=== PATIENT | male | born 1965 | race Caucasian/White ===

== ENCOUNTER → 2020-04-19 14:10 | Outpatient (BNVA) | payer MEDICARE, MEDICAID, SELFPAY | PROVIDERS: PCP Internal Medicine; Visit Provider Anesthesiology | DX: C64.2 Malignant neoplasm of left kidney, except renal pelvis (principal); R10.84 Generalized abdominal pain; G89.4 Chronic pain syndrome; Z90.5 Acquired absence of kidney; Z79.891 Long term (current) use of opiate analgesic | CPT/HCPCS: 99213 ==

== ENCOUNTER 2020-05-08 05:06 | Outpatient (REF) | payer MEDICARE, MEDICAID, SELFPAY ==
--- NOTE | 2020-05-08 07:43 | FL_ITS ---
EXAMINATION: XR FLUOROSCOPY WITH IMAGES CLINICAL INFORMATION: Chronic pain syndrome COMPARISON: None TECHNIQUE: Fluoroscopy performed by Dr. Fish. Fluoroscopy time: 0.2 minutes DAP: 1.39 Gycm2 Images: 2 FINDINGS: 2 intraoperative fluoroscopic images of the lumbar spine were obtained. These demonstrate positioning of a needle projecting over the central canal at the level of L3. FL/FL guidance in treatment room IMPRESSION: Intraprocedural fluoroscopy provided for injections as described above.
== END 2020-05-08 05:07 | disposition home or self-care (01) ==
LOC: HO.RADIR 05:06
PROVIDERS: Visit Provider Anesthesiology
DX: G89.4 Chronic pain syndrome (principal); C64.2 Malignant neoplasm of left kidney, except renal pelvis; Z90.5 Acquired absence of kidney; R10.84 Generalized abdominal pain
CPT/HCPCS: 62323; J1170; Q9967

== ENCOUNTER → 2020-05-21 09:43 | Outpatient (BNVA) | payer MEDICARE, MEDICAID, SELFPAY | PROVIDERS: PCP Internal Medicine; Visit Provider Anesthesiology | DX: G89.4 Chronic pain syndrome (principal); R10.84 Generalized abdominal pain; Z85.528 Personal history of other malignant neoplasm of kidney; Z79.899 Other long term (current) drug therapy; Z90.5 Acquired absence of kidney | CPT/HCPCS: 99212 ==

== ENCOUNTER 2020-06-12 05:40 | Outpatient (REF) | payer MEDICARE, MEDICAID, SELFPAY ==
--- NOTE | 2020-06-12 08:47 | FL_ITS ---
EXAMINATION: XR FLUOROSCOPY WITH IMAGES CLINICAL INFORMATION: G89.4 - Chronic pain syndrome COMPARISON: Fluoroscopy spot films lumbar spine 04/07/2020 TECHNIQUE: Fluoroscopy performed by Yolanda Fish NP. Fluoroscopy time: 0.1 minutes DAP: 0.76 Gycm2 Images: 1 FINDINGS: There is a spinal needle directed to the interlaminar region mid lumbar spine on this single lateral view. FL/FL guidance in treatment room IMPRESSION: Fluoroscopy for pain management procedure.
== END 2020-06-12 05:41 | disposition home or self-care (01) ==
LOC: HO.RADIR 05:40
PROVIDERS: Visit Provider Anesthesiology
DX: G89.4 Chronic pain syndrome (principal); C64.2 Malignant neoplasm of left kidney, except renal pelvis; R10.84 Generalized abdominal pain; Z90.5 Acquired absence of kidney
CPT/HCPCS: 62323; J1200; J2270; J2765

== ENCOUNTER → 2020-06-25 10:14 | Outpatient (BNVA) | payer MEDICARE, MEDICAID, SELFPAY | PROVIDERS: PCP Internal Medicine; Visit Provider Anesthesiology | DX: G89.4 Chronic pain syndrome (principal); R10.84 Generalized abdominal pain; C64.2 Malignant neoplasm of left kidney, except renal pelvis; Z90.5 Acquired absence of kidney | CPT/HCPCS: 99212 ==

== ENCOUNTER → 2020-07-23 13:14 | Outpatient (BNVA) | payer MEDICARE, MEDICAID, SELFPAY | PROVIDERS: PCP Internal Medicine; Visit Provider Anesthesiology | DX: C64.2 Malignant neoplasm of left kidney, except renal pelvis (principal); R10.84 Generalized abdominal pain; G89.4 Chronic pain syndrome; Z90.5 Acquired absence of kidney; Z79.899 Other long term (current) drug therapy | CPT/HCPCS: 99212 ==

== ENCOUNTER → 2020-08-22 14:15 | Outpatient (BNVA) | payer MEDICARE, MEDICAID, SELFPAY | PROVIDERS: PCP Internal Medicine; Visit Provider Anesthesiology | DX: C64.2 Malignant neoplasm of left kidney, except renal pelvis (principal); G89.4 Chronic pain syndrome; R10.84 Generalized abdominal pain; Z90.5 Acquired absence of kidney | CPT/HCPCS: 99212 ==

== ENCOUNTER 2020-09-11 06:08 | Outpatient (REF) | payer MEDICARE, MEDICAID, SELFPAY ==
--- NOTE | ~2020-09-11 | FL_ITS ---
EXAMINATION: XR FLUOROSCOPY WITH IMAGES CLINICAL INFORMATION: G89.4 - Chronic pain syndrome COMPARISON: Fluoroscopy with images 06/12/2020 TECHNIQUE: Fluoroscopy performed by Yolanda Fish NP. Fluoroscopy time: 0.2 minutes DAP: 1.57 Gycm2 Images: 1 FINDINGS: There is spinal needle overlying the mid lumbar interlaminar space. FL/FL guidance in treatment room IMPRESSION: Fluoroscopy for pain management procedure.
== END 2020-09-11 06:09 | disposition home or self-care (01) ==
LOC: HO.RADIR 06:08
PROVIDERS: Visit Provider Anesthesiology
DX: C64.2 Malignant neoplasm of left kidney, except renal pelvis (principal); R10.84 Generalized abdominal pain; G89.4 Chronic pain syndrome; Z90.5 Acquired absence of kidney
CPT/HCPCS: 62323; J3010; Q9967

== ENCOUNTER → 2020-09-19 14:29 | Outpatient (BNVA) | payer MEDICARE, MEDICAID, SELFPAY | PROVIDERS: PCP Internal Medicine; Visit Provider Anesthesiology | DX: G89.4 Chronic pain syndrome (principal); C64.2 Malignant neoplasm of left kidney, except renal pelvis; R10.84 Generalized abdominal pain; Z90.5 Acquired absence of kidney | CPT/HCPCS: 99212 ==

== ENCOUNTER → 2020-10-16 13:29 | Outpatient (BNVA) | payer MEDICARE, MEDICAID, SELFPAY | PROVIDERS: PCP Internal Medicine; Visit Provider Family Medicine Adult Medicine | DX: Z51.81 Encounter for therapeutic drug level monitoring (principal) | CPT/HCPCS: 99211 ==

== ENCOUNTER → 2020-11-14 10:48 | Outpatient (BNVA) | payer MEDICARE, MEDICAID, SELFPAY | PROVIDERS: PCP Internal Medicine; Visit Provider Anesthesiology | DX: C64.2 Malignant neoplasm of left kidney, except renal pelvis (principal); R10.84 Generalized abdominal pain; G89.4 Chronic pain syndrome; Z90.5 Acquired absence of kidney | CPT/HCPCS: 99212 ==

== ENCOUNTER 2021-01-25 08:52 | Day surgery (SDC) | payer MEDICARE, MEDICAID, SELFPAY ==
[2021-01-18 10:04] VITALS: BMI 21.7
--- NOTE | 2021-01-24 09:07 | P.CONAN_ITS ---
Documented by User: Sonya Lynn 01/24/21 09:07 HPI - Anesthesia Eval Consult details Narrative: 55yo M for Intrathecal Drug Delivery Implant PMFSH Active Problems Active Problems: All Active Problems (Updated 01/18/21 @ 10:09 by Saima Boyd) Chronic pain syndrome (Acute) Generalized abdominal pain (Acute) Acquired absence of kidney (Acute) Cancer of left kidney (Acute) Past Medical History Medical History Acquired absence of kidney Cancer of kidney Chronic pain syndrome COVID-19 vaccine series completed Generalized abdominal pain Mild heartburn Surgical History Surgical History History of abdominal surgery History of orchiectomy History of right nephrectomy Hx of colonoscopy Social History Social History Are you a primary respite care provider to a significant other at home: No Do you presently have visiting nurse or other home services: No (Sister is a nurse) Patient Tobacco Use Status: Current everyday Tobacco user Tobacco use type: Cigarette Cigarette Packs Per Day: 0.5 Cigarettes Per Day: 10.0 Years Smoked: 35 Smoked in Last 30 Days: Yes Patient Interested in Nicotine Replacement: No Patient Given Instructions on How to Stop Smoking: Yes Date Education Initiated: 01/18/21 Second Hand Smoke Exposure: No Use of substances other than those prescribed or required for medical reasons: Yes Substance Use Frequency: Occasionally Have you been hit, kicked, punched, or otherwise hurt by someone within the past year? If so, by whom?: No Are you DNR?: No Advance Directives: No Advance Directives Information Provided: No Advance Directives on File: No Recently lost weight without trying: No Eating poorly because of decreased appetite: No Nutrition Risks: No Nutritional Risk Meds Allergies Allergy/AdvReac Type Severity Reaction Status Date / Time No Known Allergies Allergy Verified 01/18/21 10:01 Home Medications Medication Instructions Recorded Confirmed Last Taken Type trazodone 50 mg tablet 50 mg PO BEDTIME 05/21/20 01/18/21 Unknown History acetaminophen 500 mg capsule 1,000 mg PO Q6H PRN 01/18/21 01/18/21 01/25/21 05:00 History gabapentin 300 mg capsule 300 mg PO TID 01/18/21 01/18/21 Unknown History acetaminophen 325 mg capsule mg 01/25/21 01/25/21 05:00 History (Tylenol) Exam Exam Date and Time: January 24, [id number] Height,Weight and Vital Signs: Height 6 ft 1 in Weight 74.843 kg Assessment and Plan Assessment Anesthesia Assessment: Chart Reviewed Documented by User: Gloria Levy 01/25/21 10:37 [facility] Past Medical History Medical History Acquired absence of kidney Cancer of kidney Chronic pain syndrome COVID-19 vaccine series completed Generalized abdominal pain Mild heartburn Family History Family history of problems with anesthesia: No Surgical History Surgical History History of abdominal surgery History of orchiectomy History of right nephrectomy Hx of colonoscopy History of Problems with Anesthesia: No Social History Social History Are you a primary respite care provider to a significant other at home: No Do you presently have visiting nurse or other home services: No (Sister is a nurse) Patient Tobacco Use Status: Current everyday Tobacco user Tobacco use type: Cigarette Cigarette Packs Per Day: 0.5 Cigarettes Per Day: 10.0 Years Smoked: 35 Smoked in Last 30 Days: Yes Patient Interested in Nicotine Replacement: No Patient Given Instructions on How to Stop Smoking: Yes Date Education Initiated: 01/18/21 Second Hand Smoke Exposure: No Use of substances other than those prescribed or required for medical reasons: Yes Substance Use Frequency: Occasionally Have you been hit, kicked, punched, or otherwise hurt by someone within the past year? If so, by whom?: No Are you DNR?: No Advance Directives: No Advance Directives Information Provided: No Advance Directives on File: No Recently lost weight without trying: No Eating poorly because of decreased appetite: No Nutrition Risks: No Nutritional Risk Meds Allergies Allergy/AdvReac Type Severity Reaction Status Date / Time No Known Allergies Allergy Verified 01/18/21 10:01 Home Medications Medication Instructions Recorded Confirmed Last Taken Type trazodone 50 mg tablet 50 mg PO BEDTIME 05/21/20 01/18/21 Unknown History acetaminophen 500 mg capsule 1,000 mg PO Q6H PRN 01/18/21 01/18/21 01/25/21 05:00 History gabapentin 300 mg capsule 300 mg PO TID 01/18/21 01/18/21 Unknown History acetaminophen 325 mg capsule mg 01/25/21 01/25/21 05:00 History (Tylenol) Exam Airway Mallampati Class: II TM Dist: >3cm Neck ROM: Full Assessment and Plan Assessment Anesthesia Assessment: Anesthesia Plan Discussed Final Anesthetic Review Family History of Problems with Anesthesia: No History of Problems with Anesthesia: No NPO: Yes ASA Class: II Final Preanesthetic Review: No Changes in Pt Med Stat, Meds/Allgs Chart Reviewed and Consent Obtained/Reviewed Patient Risk: Low Procedure Risk: Low Assessment/Block/Sedation in SS: Assess/Block/Sedation-SS Anesthetic Plan Anesthetic Plan: MAC: Disposition: Standard PACU
[2021-01-25] VITALS (7 sets, daily range): BP systolic 121–160; BP diastolic 59–95; PULSE 71–86; RESP 16–20; TEMP 36.1–36.6; O2SAT 96–100
--- NOTE | ~2021-01-25 | FL_ITS ---
EXAMINATION: XR FLUOROSCOPY WITH IMAGES CLINICAL INFORMATION: Intrathecal drug delivery implant COMPARISON: None. TECHNIQUE: Fluoroscopy performed by Dr. Carlitos Yuen. Fluoroscopy time: 0.5 minutes DAP: 4.89 Gycm2 Images: 2 FINDINGS: There is a metallic marker overlying mid T12 vertebral body on one image and a metallic marker overlying the upper left SI joint on the other image. There is a wire and catheter overlying the spine. FL/FL guidance in OR IMPRESSION: Fluoroscopy for pain management procedure.
[2021-01-25] MEDS: Lactated Ringers 1,000 ML 100 ML IVCONT (09:42)
--- NOTE | 2021-01-25 10:36 | MHC.SHP ---
Pre-Procedural Eval Section A Date of Service: 01/25/21 The patient is an INPATIENT: No The History & Physical has been completed within 30 days and I have reviewed it.: No Section B Chief Complaint: Cancer of Left Kidney Details of Present Illness: as above Relevant Family History (Specify if Yes): No Relevant Social History: None Present Medications: see Short Stay Collaborative assessment Medical History: Significant History History of Previous Operations: Relevant previous surgery/procedure and date(s) Allergies: Allergies Allergy/AdvReac Type Severity Reaction Status Date / Time No Known Allergies Allergy Verified 01/18/21 10:01 Review of Systems Sugical H&P ROS: Negative: Constitution, Cardiovascular, Respiratory, Neurological, Psychiatric, Hem-Onc, Allergic/Immunologic, Gastrointestinal, Genitourinary, Musculoskeletal, Integumentary, Endocrine and Eyes/Ears/Nose/Throat Exam Surgical H&P Exam: Normal: HEENT, Normal: Heart, Normal: Lungs, Normal: Extremities, Normal: Abdomen, Normal: Skin and Normal: Neurological Plan Diagnosis/Plan: Unchanged I have reviewed the history and physical and performed a pertinent physical examination on my patient. No changes have occurred unless specified.
--- NOTE | 2021-01-25 10:49 | W.PM.OPN ---
Operative Note Operative Note Date of Service: 01/25/21 Narrative: Intrathecal drug delivery system (pain pump) implantation. After obtaining informed consent and explaining to the patient risks, benefits and alternatives to treat his pain, the patient was brought up to the operating room where he was positioned supine on the stretcher.? [place] [employer] monitors were applied and general anesthesia was induced with endotracheal intubation.? After that the patient was transferred to the operating table prone.? All pressure points protected.? The patient received antibiotic cephazolin 3 gramms intravenously. Time-out was performed delineating correct site and side of the procedure, name and date of of the patient, risk of fire, need for antibiotic prophylaxis risk of DVT and need for DVT prophylaxis. ? After that the patient entire back was prepped with chloroprep and draped with fool body drape including ioban film. Sterilely drape C-arm was brought over the OR field and square pictures of the L1, L2, L3 vertebrae were demonstrated on the screen. the entrance point? for the catheter was chosen as the L1- L2 interspace. . In the strict midline fashion 6 cm vertical skin incision was made with #15 scalpel.?Thorough hemostatsis was obtained and the wound was widened and deepened using dull and electrocautery dissection. Plevertebral fascia was freed from overlaying tissues. After that 100 mm introducer spinal 16 g needle was incerted under x-ray guidance in the projection of the right L3 pedicle. The needle advanced under the x-ray guidance with intemitteny A-P? and lateral pictures toward the spinal canal L1-L2 interspace. When on the lateral view the needle entered the spinal canal the stylet was removed and the clear flow of the CSF was obtain through the needle hub. Intrathecal Ascenda catheter was inserted through the needle and advanced under the x-ray guidance toward the?T7- T8 vertebral body projection. posterior intrathecal catheter position was noted on the lateral view. The purse string suture was applied around the introducer needle and was tide. The needle was removed and care was taken to keep the ascenda catheter in place in between T7 and T8 vertebral projections.The stylet was removed from the catheter and the flow of CSF fluid straw colored and clear was observed coming from the catheter. Thorough hemostasis was obtained using electrocautery. the prevertebral fascia was freed from overlaying tissues. After that the needle was withdrawn with care taken to keep the catheter in place.? Anchoring device was dislodged on the catheter and advanced until it met prevertebral fascia.? It was engaged on the body of the catheter.? Two anchoring Tycron 1.o sutures were used to suture left wing of the anchor to prevertebral fascia and 1 anchoring suture was used to stitch in the right wing of anchoring device to prevertebral fascia. ?After that the thorough irrigation of the wound was performed and wound was packed with vancomycin soaked 4 x 4. Attention then was concentrated on the patient's left buttock.? Sterilely draped C-arm was brought over the operative field again and position of the patient's iliac crest on the left was demonstrated on the screen.? 2 cm below the projection of the iliac crest to the skin of the local anesthetic bupivacaine was injected in the linear horizontal fashion.? After that 8.5 cm incision was performed in patient's right buttock alongside the injected line.? Thorough hemostasis was obtained using cautery device.? After that the wound was widened and made 2.5 cm deep .? The wound was extended medially and laterally as well as caudally and cranially to form the space to accommodate the body of the pump.? Thorough hemostasis was performed.? The wound was irrigated with vancomycin containing normal saline and then tunneling device was used to connect both wounds and dislodged the intrathecal catheter into the side wound.? The catheter was trimmed appropriately after that and sutureless connection device was connected with the catheter.? After that sutureless connection device was connected to the pump.? The pump was filled with fentanyl 75 mcg per ml 19 mls. Aspiration of the side port of the pump revealed clear flow of CSF.? Three anchoring 1.0 Tycron sutures were applied in most superior lateral and superior medial as well inferior lateral corners of the wound. ? After that the sutures were connected to the bracket is on the body of the pump, intrathecal catheter was gathered behind the body of the pump and pump was dislodged into the wound.? After that the anchoring sutures were tied.? Thorough irrigation with vancomycin was performed again in both wounds.? Thorough hemostasis was verified.? 0 polisorb sutures were used to close both wounds, 2-0 suture of the same nature were used to approximate the skin.? Donita were applied to the skin line and Bacitracin ointment was applied to the staple lines.? Sterile dressing with sterile 4x4s was performed, abdominal binder was applied.? Upon completion of the procedure patient was awaken extubated and taken outside of the operating room to recovery room where HE recovered uneventfully.? HE went home without immediate complications. He was prescribed antibiotics to take for 14 days postoperatively. He was instructed to obtain probiotics OTC and take them in between the antibiotics doses. The pump was programmed to deliver 5 mcg of fentanyl in 24 hours and 3 on demand doses of fentanyl 7 mcg every 6 hours 3 times a day.
[2021-01-25] MEDS: oxyCODONE HCl Immed Release 5 MG TABLET PO (13:10)
[2021-01-25] MEDS: Acetaminophen 325 MG TABLET 650 MG PO (13:10)
--- NOTE | 2021-01-25 13:16 | P.BOP_ITS ---
Brief Operative Note Date of Service: 01/25/21 Pre-op diagnosis: Kidney cancer, intractable abdominal pain. Procedure: Implantation of intrathecal drug delivery system pain pump I [employer] Implants: Intrathecal catheter Ascenda and intrathecal pain pump SynchroMed 2 Surgeon: Carlitos Yuen MD Anesthesia: GETA Was an Insurance Administrative Assistant used for this Procedure?: No Estimated blood loss (mL): 31 Pathology: none sent Condition: stable Disposition: PACU
== END 2021-01-25 14:34 | disposition home or self-care (01) ==
PROVIDERS: PCP Internal Medicine; Visit Provider Anesthesiology
PROC: (CPT 62350; principal; 2021-01-25 10:40)
DX: C64.2 Malignant neoplasm of left kidney, except renal pelvis (principal); Z90.5 Acquired absence of kidney; G89.4 Chronic pain syndrome; R10.84 Generalized abdominal pain; Z90.79 Acquired absence of other genital organ(s); Z79.899 Other long term (current) drug therapy
CPT/HCPCS: 62350; 62362; C1755; C1772; J0690; J1100; J2250; J2370; J2405; J3010; J3370

== ENCOUNTER → 2021-01-30 13:20 | Outpatient (BNVA) | payer MEDICARE, MEDICAID, SELFPAY | PROVIDERS: PCP Internal Medicine; Visit Provider Anesthesiology | DX: R10.84 Generalized abdominal pain (principal); G89.4 Chronic pain syndrome; G97.1 Other reaction to spinal and lumbar puncture; C64.2 Malignant neoplasm of left kidney, except renal pelvis; Z90.5 Acquired absence of kidney | CPT/HCPCS: 99212 ==

== ENCOUNTER 2021-01-30 14:25 | Observation (INO) | payer MEDICARE, MEDICAID, SELFPAY ==
[2021-01-30] VITALS (7 sets, daily range): BP systolic 103–119; BP diastolic 59–73; PULSE 52–59; RESP 12–19; TEMP 36.4–37.1; O2SAT 95–100; BMI 24.5
--- NOTE | ~2021-01-30 | FL_ITS ---
EXAMINATION: XR FLUOROSCOPY WITH IMAGES CLINICAL INFORMATION: Blood patch COMPARISON: None. TECHNIQUE: Fluoroscopy performed by Dr. Charanjit Conn. Fluoroscopy time: 0.3 minutes DAP: 1.702 mGycm2 Images: 2 FINDINGS: Fluoroscopy was provided during a spinal injection. FL/FL guidance in OR IMPRESSION: Fluoroscopy performed by the orthopedic department. Please see operative report for further information.
--- NOTE | ~2021-01-30 | CT_ITS ---
EXAMINATION: CT HEAD WITHOUT CONTRAST CLINICAL INFORMATION: Headache. COMPARISON: No relevant prior imaging. TECHNIQUE: Contiguous axial imaging was performed from the skull base to vertex without intravenous administration of contrast. This CT examination was performed using dose optimization techniques as appropriate, variously including the following: *Automated exposure control *Adjustment of mA and/or kV according to patient size (this includes techniques or standardized protocols for targeted exams where dose is matched to indication/reason for exam; i.e. extremities or head) *Use of iterative reconstruction technique DLP: 816 mGy-cm FINDINGS: There is no acute intracranial hemorrhage or abnormal extra-axial collection. No intracranial mass effect or midline shift. Lateral and third ventricles are normal. No hydrocephalus. Mittal-white matter differentiation is preserved and there is no evidence of acute territorial infarct. The calvarium and skull base are intact. Mastoid air cells and middle ear cavities are well aerated. No active paranasal sinus disease. CT/CT head/brain wo con IMPRESSION: Unremarkable CT scan of the head. No evidence of acute territorial infarct or hemorrhage.
--- NOTE | ~2021-01-30 | FL_ITS ---
EXAMINATION: Intraoperative fluoroscopy CLINICAL INFORMATION: Blood patch COMPARISON: None. TECHNIQUE: Intraoperative fluoroscopy was provided for use by Dr. Yuen. A total of 2 images were saved to PACS. A radiologist was not present during imaging. Today's dictation is only for administrative purposes to document intraoperative fluoroscopic usage. TOTAL FLUOROSCOPIC TIME: 0.2 minutes FL/FL guidance in OR FINDINGS~\^^ Intraoperative fluoroscopy provided for use by Dr. Yuen. Please see operative note for detailed findings.
--- NOTE | 2021-01-30 15:29 | ED_ITS ---
HPI - General Adult General Chief complaint: General Medical Stated complaint: GENERAL WEAKNESS S/P SURGERY FROM MD OFFICE Time Seen by Provider: 01/30/21 15:19 Source: patient History of Present Illness HPI narrative: This is a 54-year-old male with a history of renal cell carcinoma as well as abdominal hernia repair status post complication with mission here to bowel and small bowel obstruction, who has had chronic abdominal pain. The patient has previously been on p.o. pain medicine but was found to have urinary retention on some opioids, did tolerate fentanyl. Last Thursday, 5 days ago, the patient had an intrathecal pain pump placed in order that the patient receive fentanyl intrathecally. His abdominal pain has been much better since then but the day following the procedure, he developed a headache, worse with being upright, as well as nausea and vomiting, poor appetite. The patient has not had any fever. Patient was evaluated by Dr. Bryan, the pain specialist who had placed the pump, today, and was thought to have post fecal puncture associated headache and nausea, was sent in for admission, and is to have a blood patch placed tomorrow.. Patient reports the pain is severe his head. He denies any fever, has had mild neck pain but denies any neck stiffness. The pain specialist had taken the dressing off of the patient's back operative site today and not found any concerning findings or sign of infection. The patient was supposed to have been placed on antibiotics after the procedure but apparently never received the prescription and has not been on them Related Data Home Medications Medication Instructions Recorded Confirmed acetaminophen 500 mg capsule 1,000 mg PO Q6H PRN 01/18/21 01/30/21 oxycodone 10 mg tablet 1 tab PO Q8H PRN 01/30/21 01/30/21 Previous Rx's Medication Instructions Recorded cephalexin 500 mg tablet 1,000 mg PO Q8H 14 Days #84 tab 01/25/21 ondansetron HCl 4 mg tablet 4 mg PO Q8H PRN 20 Days #60 tab 01/28/21 (Zofran) Allergies Allergy/AdvReac Type Severity Reaction Status Date / Time No Known Allergies Allergy Verified 01/18/21 10:01 Review of Systems Review of Systems: Yes all other systems are reviewed and are negative Constitutional: Constitutional: Reports as per HPI, Denies fever(s) and Reports headache(s) Eyes: Eyes: Reports as per HPI and Reports no additional eye complaints ENT: Reports system reviewed and no additional complaints, except as documented, Reports as per HPI, Reports headache(s), Denies nasal congestion, Denies nasal discharge and Denies sore throat Cardiovascular: Cardiovascular: Reports as per HPI, Denies chest pain and Denies dyspnea Respiratory: Respiratory: Reports as per HPI, Denies cough and Denies dyspnea Gastrointestinal: Gastrointestinal: Reports as per HPI, Denies abdominal pain, Denies diarrhea, Reports nausea and Reports vomiting Genitourinary: Genitourinary: Reports as per HPI, Denies hematuria, Denies dysuria and Denies urinary frequency Musculoskeletal: Musculoskeletal: Reports no additional musculoskeletal compl aints and Denies numbness Integumentary/Breasts: Skin/Breast: Reports as per HPI and Denies rash Neurologic: Reports headache(s), Denies numbness and Denies Sensory deficit (Neuro) Psychiatric: Psychiatric: Reports no additional psychiatric complaints and Reports as per HPI Endocrine: Endocrine: Reports no additional endocrine complaints and Reports as per HPI Hematologic/Lymphatic: Hematologic/Lymphatic: Reports no additional hematologic/lymphatic complaints, Reports as per HPI and Reports other (No peripheral edema) [facility] Past Medical History Medical History (Updated 01/30/21 @ 21:24 by Víctor Perkins MD) Acquired absence of kidney Cancer of kidney Chronic pain syndrome COVID-19 vaccine series completed Generalized abdominal pain Mild heartburn Post-dural puncture headache Surgical History History of abdominal surgery History of orchiectomy History of right nephrectomy Hx of colonoscopy Social History Social History Are you a primary child care worker to a significant other at home: No Do you presently have visiting nurse or other home services: No (Sister is a nurse) Alcohol intake: current Alcohol intake frequency: holidays/special occasions only Patient Tobacco Use Status: Current everyday Tobacco user Tobacco use type: Cigarette Cigarette Packs Per Day: 0.5 Cigarettes Per Day: 10.0 Years Smoked: 35 Second Hand Smoke Exposure: No Use of substances other than those prescribed or required for medical reasons: Yes Substance Use Type: Marijuana Substance Use Frequency: Occasionally Advance Directives: Yes Advance Directives Information Provided: No Advance Directives on File: No Physical Exam Vital Signs: Vital Signs: Last Vital Signs Temp 97.6 F 01/30/21 19:55 Pulse 52 01/30/21 19:55 Resp 17 01/30/21 19:55 BP 119/73 01/30/21 19:55 Pulse Ox 98 01/30/21 19:55 Body Mass Index 24.5 Const: General: cooperative, no acute distress and alert Orientation/consciousness: patient oriented x3 HENMT: Head: Yes normal to inspection Eyes: General: appearance normal, both eyes and all related structures Eyelids: Yes eyelids normal Conjunctivae: conjunctivae normal Pupils: Equa l, round and reactive pupils present Neck: Neck: Yes normal visual inspection and Yes supple Chest: Chest palpation & inspection: normal inspection of the chest Resp: Effort & Inspection: normal respiratory effort Auscultation: clear to auscultation bilaterally Cardio: Rate: regular rate Rhythm: regular rhythm Heart sounds: S1 normal heart sound present, S2 normal heart sound present, no gallops, no murmurs and no rubs GI: Palpation (GI): Soft to palpation, nontender and Other GI palpation findings present (Non-distended) Auscultation: normal bowel sounds Back/Spine/Pelvis: Other: two fresh bandages with Tegaderm type covering in place, no localized erythema or swelling. Skin: General skin exam: no rashes or lesions noted Neuro: General: patient oriented x3, no focal motor deficits and CN's II-XI intact bilaterally Cranial nerves: Yes Equal, round and reactive pupils present Cognition (Neuro): normal cognition Motor exam (neuro): 5/5 motor strength present throughout Sensory Exam: No Sensory deficit (Neuro) Extrem: General: Yes normal to inspection and Yes no pedal edema Psych: Appearance: grossly normal Affect: normal affect Medical Decision Making [facility] Narrative Medical decision making narrative: Patient with placement of an intrathecal fentanyl pump 5 days ago, subsequently developed headache and vomiting. Abdominal pain, which is chronic, is improved with the intrathecal pump. Patient was sent in for admission for IV fluids, pain management, and placement of a blood patch tomorrow. Labs notable for mildly elevated BUN to creatinine ratio mildly elevated white blood cell count. Patient not ill appearing, no meningismus, no suspicion for meningitis. Case discussed with Dr. Youngblood of the hospitalist service who has accepted the patient for admission Lab Data Lab results reviewed: Yes I reviewed the patient's lab results. Result diagrams: 01/30/21 15:50 01/30/21 15:50 Labs: Lab Results 01/30/21 01/30/21 01/30/21 Range/Units 15:50 15:50 18:11 WBC 12.2 H (4.8-10.8) X10*3/uL RBC 4.56 L (4.60-5.80) X10*6/uL Hgb 14.3 (14.0-18.0) g/dl Hct 41.8 L (42-52) % MCV 91.7 (80-98) fL MCH 31.4 (27.0-33.0) pg MCHC 34.2 (31.0-36.0) g/dl RDW 12.9 (11.0-16.0) % Plt Count 356 (160-400) X10*3/uL MPV 9.2 L (9.4-12.4) fL Immature Gran % (Auto) 0.4 (0.0-0.4) % Neut % (Auto) 78.9 H (45-73) % Lymph % (Auto) 11.6 L (20-40) % Custer % (Auto) 8.2 (2-11) % Eos % (Auto) 0.6 (0-4) % Baso % (Auto) 0.3 (0-2) % Lymph # (Auto) 1.4 (1.2-4.9) X10*3/uL [place]uster # (Auto) 1.0 (0.1-1.2) X10*3/uL Eos # (Auto) 0.1 (0.0-0.4) X10*3/uL Baso # (Auto) 0.0 (0.0-0.2) X10*3/uL Abs Immat Gran (auto) 0.05 H (0.00-0.03) X10*3/uL Absolute Neuts (auto) 9.6 H (2.0-8.3) X10*3/uL Absolute Nucleated RBC 0.000 (0.0-0.012) X10*3/uL Nucleated RBC % (auto) 0.0 (0.0-0.2) /100WBC Sodium 142 (135-145) mmol/L Potassium 4.4 (3.3-5.1) mmol/L Chloride 104 (96-108) mmol/L Carbon Dioxide 24 (22-29) mmol/L Anion Gap 18 (12-20) BUN 18 H (9-16) mg/dL Creatinine 1.02 (0.5-1.4) mg/dL Estim Creat Clear Calc 90.8 Estimated GFR > 60 Random Glucose 97 (60-115) mg/dL Calcium 10.1 (8.4-10.2) mg/dL Total Bilirubin 0.5 (0.0-1.0) mg/dL AST 55 H (5-37) U/L ALT 58 H (0-40) U/L Alkaline Phosphatase 88 (39-117) U/L Total Protein 7.3 (6.5-8.0) g/dL Albumin 4.5 (3.5-5.0) g/dL COVID-19 (DREW) Negative (Negative) COVID-19 Clin Com See Note Imaging Data CT scan - head: Radiologist's impression: No acute pathology Discharge Plan Discharge Clinical Impression: Post-dural puncture headache, Chronic pain syndrome, Dehydration, Vomiting Patient Disposition: Admitted As Inpatient Prescriptions: No Action cephalexin 500 mg tablet 1,000 mg PO Q8H 14 Days Qty: 84 RF: 0 ondansetron HCl [Zofran] 4 mg tablet 4 mg PO Q8H PRN (Reason: nausea and vomiting) 20 Days Qty: 60 RF: 8 acetaminophen [Tylenol Extra Strength] 500 mg Capsule 1,000 mg PO Q6H PRN (Reason: Pain) RF: 0 oxycodone 10 mg tablet 1 tab PO Q8H PRN (Reason: pain) RF: 0
[2021-01-30 15:53] LABS: MANUAL DIFF FLAG NO
[2021-01-30] MEDS: 0.9 % Sodium Chloride 1,000 ML 999 ML IV (15:53)
[2021-01-30] MEDS: HYDROmorphone HCl 1 MG/ML SYRINGE IVPUSH (15:54)
[2021-01-30 15:55] LABS: Basophils Percent Auto 0.3 % (0-2); Eosinophils Absolute Auto 0.1 X10*3/uL (0.0-0.4); Eosinophils Percent Auto 0.6 % (0-4); Hematocrit 41.8 % (42-52); Hemoglobin 14.3 g/dl (14.0-18.0); Imm Gran Abs Auto 0.05 X10*3/uL (0.00-0.03); Imm Gran Pct Auto 0.4 % (0.0-0.4); Lymphocytes Absolute Auto 1.4 X10*3/uL (1.2-4.9); Lymphocytes Percent Auto 11.6 % (20-40); Mean Corpuscular HGB Conc 34.2 g/dl (31.0-36.0); Mean Corpuscular Hemoglobin 31.4 pg (27.0-33.0); Mean Corpuscular Volume 91.7 fL (80-98); Mean Platelet Volume 9.2 fL (9.4-12.4); Monocytes Percent Auto 8.2 % (2-11); Neutrophils Absolute Auto 9.6 X10*3/uL (2.0-8.3); Neutrophils Percent Auto 78.9 % (45-73); Platelet Count 356 X10*3/uL (160-400); Red Blood Count 4.56 X10*6/uL (4.60-5.80); Red Cell Distribution Width 12.9 % (11.0-16.0); White Blood Count 12.2 X10*3/uL (4.8-10.8)
--- NOTE | 2021-01-30 16:01 | PC.NURSE ---
iv inserted, labs drawn, pt medicated per order, vss, will continue to monitor
[2021-01-30 16:22] LABS: Alanine Aminotransferase 58 U/L (0-40); Albumin Level 4.5 g/dL (3.5-5.0); Alkaline Phosphatase 88 U/L (39-117); Anion Gap 18 (12-20); Aspartate Amino Transferase 55 U/L (5-37); Bilirubin Total 0.5 mg/dL (0.0-1.0); Blood Urea Nitrogen 18 mg/dL (9-16); Calcium 10.1 mg/dL (8.4-10.2); Carbon Dioxide 24 mmol/L (22-29); Chloride 104 mmol/L (96-108); Creatinine Clr Calc Pharmacy 90.8; Estimated Glomerular Filt Rate > 60; Glucose Random 97 mg/dL (60-115); Potassium 4.4 mmol/L (3.3-5.1); Sodium 142 mmol/L (135-145); Total Protein 7.3 g/dL (6.5-8.0)
[2021-01-30 18:33] LABS: COVID-19 Test Negative (Negative); IDNOW Serial# 9DD0AD1C
[2021-01-30] MEDS: HYDROmorphone HCl 0.5 MG/0.5 ML SYRINGE IVPUSH (18:39)
[2021-01-30] MEDS: oxyCODONE HCl Immed Release 5 MG TABLET 10 MG PO (18:40)
--- NOTE | 2021-01-30 18:43 | PC.NURSE ---
patient medicated for pain per order
--- NOTE | 2021-01-30 19:56 | PC.NURSE ---
patient a&ox3, vss, pt awaiting inpt bed, c/o 12/06 pain which has decreased pt stated, will continue to monitor.
--- NOTE | 2021-01-30 20:49 | PHA.MEDREC ---
Addendum entered by [facility] 01/30/21 20:49: PT states he has not been able to keep down the cephalexin. Original Note: Pharmacy Consult ? Medication Reconciliation Pharmacy has completed the medication reconciliation.
--- NOTE | 2021-01-30 20:53 | PC.NURSE ---
hospitalist in to see patien
--- NOTE | 2021-01-30 22:02 | PC.NURSE ---
pt currently sleeping, rr 18, waiting for inpt bed, will continue to monitor.
--- NOTE | 2021-01-30 22:17 | P.HPHOSP_ITS ---
History of Present Illness Date of Service: 01/30/21 Chief Complaint: Headache 55-year-old male with a past medical history of SBO status post multiple abdominal surgeries, history of chronic abdominal pain on opiate medications at home, recently had intrathecal pump on last Thursday; presented to the hospital with a chief complaint of headache. Postprocedure he started developed headache which has gradually worsened on Thursday and has been continuous; located on the frontal area, a denies any blurry visions, nausea vomiting. Denies any numbness tingling or focal weakness. Denies any fevers chills. Patient also complains of pain at the procedure site; Denies any GI or symptoms. Review of all other systems is negative except mentioned above ER course: Per ER physician, patient exam was nonfocal, neck is supple, no meningeal signs, patient afebrile; also mentioned that patient would probably does not need LP as there is less concern for meningitis. Also mentioned that findings consistent with spinal headache secondary to the home; discussed with Dr. yuen from pain management who placed the palm recommended admission to the hospital and will put in a blood patch in the morning [facility] Medical History (Updated 02/20/21 @ 11:47 by Carlitos Yuen MD) Acquired absence of kidney Cancer of kidney Cancer of left kidney Chronic pain syndrome COVID-19 vaccine series completed Generalized abdominal pain Gout attack History of gout Mild heartburn Post-dural puncture headache Postdural puncture headache Surgical History (Updated 02/15/21 @ 00:02 by Callum Moreno) History of abdominal surgery History of orchiectomy History of right nephrectomy Hx of colonoscopy Status post insertion of intrathecal pump Social History Are you a primary healthcare market consultant to a significant other at home: No Do you presently have visiting nurse or other home services: No (Sister is a nurse) Alcohol intake: current Alcohol intake frequency: holidays/special occasions only Patient Tobacco Use Status: Current everyday Tobacco user Tobacco use type: Cigarette Cigarette Packs Per Day: 0.5 Cigarettes Per Day: 10.0 Years Smoked: 35 Second Hand Smoke Exposure: No Substance Use Type: Marijuana service: No Current occupational status: disabled Meds Allergies Allergy/AdvReac Type Severity Reaction Status Date / Time No Known Allergies Allergy Verified 01/18/21 10:01 Active Medications: Current Medications Generic Name Dose Route Start Last Admin Trade Name Edward PRN Reason Stop Dose Admin Hydromorphone HCl 0.5 mg 01/30/21 22:10 Hydromorphone Hcl 0.5 Mg/0.5 Ml Syringe IVPUSH Q4H PRN Pain, Severe (Pain Scale 7-10) Melatonin 6 mg 01/30/21 22:10 Melatonin 3 Mg Tablet PO BEDTIME PRN Insomnia Non-Formulary Medication 1,000 mg 01/30/21 22:15 Cephalexin PO Q8H KELTON Ondansetron HCl 4 mg 01/30/21 22:10 Ondansetron Hcl 4 Mg/2 Ml Vial IVPUSH Q8H PRN Nausea and Vomiting Pharmacy Consult 1 each 01/30/21 20:22 Consult Rx Perform Med Rec MISCELLANE ONCE PRN Consult order Sodium Chloride 3 ml 01/31/21 00:00 0.9 % Sodium Chloride Flush 3 M[facility] Medications Medication Instructions Recorded Confirmed Last Taken Type acetaminophen 500 mg capsule 1,000 mg PO Q6H PRN 01/18/21 01/30/21 01/25/21 05:00 History Physical Exam Vital Signs and Narrative: Vital Signs: Last Vital Signs Temp 98.8 F 01/30/21 21:18 Pulse 52 01/30/21 21:18 Resp 18 01/30/21 22:02 BP 104/59 L 01/30/21 21:18 Pulse Ox 97 01/30/21 21:18 Body Mass Index 24.5 Gen: Appears be in no acute distress HEENT: NCAT, Moist mucosa. PERRLA Pulmonary: Vesicular breath sounds, fair air entry CVS: Normal S1-S2 Abdomen: BS+, Soft, Nontender Extremities: Warm well perfused; intrathecal pump site on the low back appears healing; has sutures in place; Neuro: Alert and awake. Nonfocal examination; Results Labs CBC and Chem 7: 01/31/21 05:45 01/31/21 05:45 Labs: Laboratory Results - last 24 hr 01/30/21 01/30/21 01/30/21 15:50 15:50 18:11 MCV 91.7 MCH 31.4 MCHC 34.2 RDW 12.9 Plt Count 356 MPV 9.2 L Immature Gran % (Auto) 0.4 Neut % (Auto) 78.9 H Lymph % (Auto) 11.6 L [place] % (Auto) 8.2 Eos % (Auto) 0.6 Baso % (Auto) 0.3 Lymph # (Auto) 1.4 [place] # (Auto) 1.0 Eos # (Auto) 0.1 Baso # (Auto) 0.0 Abs Immat Gran (auto) 0.05 H Absolute Neuts (auto) 9.6 H Absolute Nucleated RBC 0.000 Nucleated RBC % (auto) 0.0 Anion Gap 18 Estim Creat Clear Calc 90.8 Estimated GFR > 60 Random Glucose 97 Calcium 10.1 Total Bilirubin 0.5 AST 55 H ALT 58 H Alkaline Phosphatase 88 Total Protein 7.3 Albumin 4.5 COVID-19 (DREW) Negative COVID-19 Clin Com See Note Imaging Radiologist's Impressions: Impressions Head CT 01/30/21 16:41 IMPRESSION: Unremarkable CT scan of the head. No evidence of acute territorial infarct or hemorrhage. Assessment and Plan (1) Postdural puncture headache: Status: Acute 55-year-old male with a past medical history of chronic abdominal pain status post intrathecal pump placement with fentanyl on last Thursday presented to the hospital with a chief complaint of headaches; Headaches: Likely spinal pain/post procedural pain. Gentle IV fluids. Dr Yuen planning for blood patch in AM. Pain control DVT prophylaxis: SCD boots Code status: Full code Quality Stroke Does the patient have a stroke diagnosis?: No VTE Prior VTE?: No VTE Risk Level:: Medical - moderate - high VTE Device Contraindication: N/A - Device Ordered VTE Drug Contraindication: Treatment Not Indicated
[2021-01-31] VITALS (12 sets, daily range): BP systolic 99–143; BP diastolic 51–83; PULSE 50–85; RESP 14–18; TEMP 36.2–36.9; O2SAT 97–100
[2021-01-31] MEDS: HYDROmorphone HCl 0.5 MG/0.5 ML SYRINGE IVPUSH ×5 (00:29→20:41)
[2021-01-31] MEDS: 0.9 % Sodium Chloride Flush 3 ML SYRINGE IVFLUSH ×2 (00:29→08:29)
[2021-01-31 06:42] LABS: MANUAL DIFF FLAG NO
[2021-01-31 06:50] LABS: Basophils Percent Auto 0.2 % (0-2); Eosinophils Absolute Auto 0.2 X10*3/uL (0.0-0.4); Eosinophils Percent Auto 1.4 % (0-4); Hematocrit 38.5 % (42-52); Imm Gran Abs Auto 0.05 X10*3/uL (0.00-0.03); Imm Gran Pct Auto 0.4 % (0.0-0.4); Lymphocytes Absolute Auto 1.6 X10*3/uL (1.2-4.9); Mean Corpuscular HGB Conc 33.8 g/dl (31.0-36.0); Mean Corpuscular Hemoglobin 31.4 pg (27.0-33.0); Mean Platelet Volume 9.8 fL (9.4-12.4); Monocytes Absolute Auto 1.5 X10*3/uL (0.1-1.2); Monocytes Percent Auto 11.5 % (2-11); Neutrophils Absolute Auto 9.7 X10*3/uL (2.0-8.3); Neutrophils Percent Auto 74.5 % (45-73); Platelet Count 348 X10*3/uL (160-400); Red Blood Count 4.14 X10*6/uL (4.60-5.80); Red Cell Distribution Width 12.9 % (11.0-16.0)
[2021-01-31 07:20] LABS: Anion Gap 15 (12-20); Blood Urea Nitrogen 17 mg/dL (9-16); Carbon Dioxide 23 mmol/L (22-29); Chloride 105 mmol/L (96-108); Estimated Glomerular Filt Rate > 60; Glucose Random 86 mg/dL (60-115); Potassium 3.8 mmol/L (3.3-5.1); Sodium 139 mmol/L (135-145)
--- NOTE | 2021-01-31 09:14 | MHC.CM.PN ---
DERRICK 01/31/21, EMR REVIEWED, PT ADMITTED TO OBSERVATION W/POST PROCEDURAL SPINAL H/A, PER NURSGING PT IS SCHEDULED FOR BLOOD PATCH PLACEMENT AT 3PM TODAY, CM MET W/PT WHO REPORTS HE LIVES ALONE, IS INDEPENDENT W/ALL CARE, NO DME OTHER THAN IMPLANTED PAIN PUMP (02/02/30), PT DOES NOT ANTICIPATE ANY NEEDS AFTER D/C. PT VERIFIES PCP AND HCP. D/C PLAN: HOME SELF-CARE, FAMILY FOR TRANSPORT PCP: NOVA RENDON HCP: ANGIE TREJO [phone]
--- NOTE | 2021-01-31 10:45 | P.PNIM_ITS ---
Subjective Subjective Date of Service: 01/31/21 Interval History: headache Constitutional Constitutional: Reports no additional constitutional complaints Eyes Eyes: Reports no additional eye complaints Physical Exam Vital Signs: Vital Signs: Last Vital Signs Temp 97.3 F 01/31/21 07:56 Pulse 53 01/31/21 07:56 Resp 16 01/31/21 09:42 BP 111/57 L 01/31/21 07:56 Pulse Ox 99 01/31/21 07:56 Body Mass Index 24.5 General: AO X 3, in pain Resp: CTA bilateral CVS: S1,S2,RRR GI: soft, non tender, non distended Neuro: motor grossly intact Psych: appropriate affect Objective Data Current Medications Generic Name Dose Route Start Last Admin Trade Name Freq PRN Reason Stop Dose Admin Cephalexin HCl 1,000 mg 01/31/21 09:00 01/31/21 08:28 Cephalexin 500 Mg Capsule PO Not Given TID [facility] Hydromorphone HCl 0.5 mg 01/30/21 22:10 01/31/21 09:42 Hydromorphone Hcl 0.5 Mg/0.5 Ml Syringe IVPUSH 0.5 mg Q4H PRN Administration Pain, Severe (Pain Scale 7-10) Melatonin 6 mg 01/30/21 22:10 Melatonin 3 Mg Tablet PO BEDTIME PRN Insomnia Ondansetron HCl 4 mg 01/30/21 22:10 Ondansetron Hcl 4 Mg/2 Ml Vial IVPUSH Q8H PRN Nausea and Vomiting Pharmacy Consult 1 each 01/30/21 20:22 Consult Rx Perform Med Rec MISCELLANE ONCE PRN Consult order Sodium Chloride 3 ml 01/31/21 00:00 01/31/21 08:29 0.9 % Sodium Chloride Flush 3 Ml Syringe IVFLUSH 3 ml QSHIFT [facility] Administration Labs CBC & Chem 7: 01/31/21 05:45 01/31/21 05:45 Labs: Laboratory Results - last 24 hr 01/30/21 01/30/21 01/30/21 15:50 15:50 18:11 MCV 91.7 MCH 31.4 MCHC 34.2 RDW 12.9 Plt Count 356 MPV 9.2 L Immature Gran % (Auto) 0.4 Neut % (Auto) 78.9 H Lymph % (Auto) 11.6 L [place] % (Auto) 8.2 Eos % (Auto) 0.6 Baso % (Auto) 0.3 Lymph # (Auto) 1.4 [place] # (Auto) 1.0 Eos # (Auto) 0.1 Baso # (Auto) 0.0 Abs Immat Gran (auto) 0.05 H Absolute Neuts (auto) 9.6 H Absolute Nucleated RBC 0.000 Nucleated RBC % (auto) 0.0 Anion Gap 18 Estim Creat Clear Calc 90.8 Estimated GFR > 60 Random Glucose 97 Calcium 10.1 Magnesium Total Bilirubin 0.5 AST 55 H ALT 58 H Alkaline Phosphatase 88 Total Protein 7.3 Albumin 4.5 COVID-19 (DREW) Negative COVID-19 Clin Com See Note 01/31/21 01/31/21 05:45 05:45 MCV 93.0 MCH 31.4 MCHC 33.8 RDW 12.9 Plt Count 348 MPV 9.8 Immature Gran % (Auto) 0.4 Neut % (Auto) 74.5 H Lymph % (Auto) 12.0 L [place] % (Auto) 11.5 H Eos % (Auto) 1.4 Baso % (Auto) 0.2 Lymph # (Auto) 1.6 [place] # (Auto) 1.5 H Eos # (Auto) 0.2 Baso # (Auto) 0.0 Abs Immat Gran (auto) 0.05 H Absolute Neuts (auto) 9.7 H Absolute Nucleated RBC 0.000 Nucleated RBC % (auto) 0.0 Anion Gap 15 Estim Creat Clear Calc 113.0 Estimated GFR > 60 Random Glucose 86 Calcium 9.0 D Magnesium 2.0 Total Bilirubin AST ALT Alkaline Phosphatase Total Protein Albumin COVID-19 (DREW) COVID-19 Clin Com Assessment and Plan Assessment and Plan: 55M post intrathecal pump, presented with headaches headaches plan for blood patch today pain control Quality Stroke Does the patient have a stroke diagnosis?: No VTE Prior VTE?: No VTE Risk Level:: Medical - moderate - high VTE Device Contraindication: N/A - Device Ordered VTE Drug Contraindication: Treatment Not Indicated
--- NOTE | 2021-01-31 15:09 | MHC.SHP ---
Pre-Procedural Eval Section A Date of Service: 01/31/21 The patient is an INPATIENT: Yes Changes since office visit: Yes Patient answered all questions The History & Physical has been completed within 30 days and I have reviewed it.: Yes Section B Chief Complaint: Headache Allergies: Allergies Allergy/AdvReac Type Severity Reaction Status Date / Time No Known Allergies Allergy Verified 01/18/21 10:01 Plan I have reviewed the history and physical and performed a pertinent physical examination on my patient. No changes have occurred unless specified.
[2021-01-31] MEDS: oxyCODONE HCl Immed Release 5 MG TABLET 10 MG PO (17:15)
[2021-01-31] MEDS: 0.9 % Sodium Chloride 1,000 ML 75 ML IVCONT (17:15)
--- NOTE | 2021-01-31 17:16 | P.BOP_ITS ---
Brief Operative Note Date of Service: 01/31/21 Pre-op diagnosis: Post dural puncture headache Procedure: Epidural blast that Implants: None Surgeon: Carlitos Yuen MD Was an Nuclear Reactor Engineer used for this Procedure?: No Estimated blood loss (mL): 5 Pathology: none sent Condition: stable Disposition: PACU
--- NOTE | 2021-01-31 17:18 | P.OP_ITS ---
Operative Note Operative Note Date of Service: 01/31/21 Narrative: Mr. Gonzalez is very pleasant 55 years old gentleman who received intrathecal drug delivery system pain pump 1 week ago. He developed post dural puncture headache postoperatively. He came today to the operating room to rece hilario epidural blood patch. After obtaining informed consent the patient was brought to the OR and he was positioned prone on the operating table. He was not sedated. We started from preparation of the patient forearms for sterile blood withdrawal for the blood patch. It appeared to be very difficult to perform, the several veins I tried to canulate were very fragile and ruptured creating local hem atoma. the patient started to become more restless. He started to moan and complain on pain in the abdomen while positioning on the operating table with the several pillows under the belly. The main pain of this patient is secondary to procedures on kidney cancer done through the abdomen. He is suffering from chronic abdominal pain. At this moment I requested attendance of the anesthesiologist on-call. Dr. Frank came to the rescue. Dr. Frank came to the room and carefully examined the patient. Unfortunately neither on upper nor on lower extremities he like me was not able to locate any vein which is suitable for cannulation with large-bore IV catheter. At this moment he prepped yet another site of the intravenous puncture while I was ready to do the access to the epidural space. The lower back of the patient was prepped with ChloraPrep and draped with utility towels. Sterilely draped C- arm was brought of the operating field and sq picture of L1 and L2 vertebra was demonstrated on the screen. Local anesthetic was injected in the projection of upper margin of the L2 lamina 1-2 cc of lidocaine 2%. After that 22 gauge Touhy needle was inserted through the skin and advanced to upper margin of the left L2 lamina on anterior posterior and lateral views. After that loss of resistance to air technique was used to slide the Touhy needle off of the margin of the L2 lamina on the left and advanced it to epidural space. When loss of resistance was felt the Omnipaque contrast was injected demonstrating epidurogram on the lateral view. At this moment Dr. Frank obtained and access to the peripheral vein using plain 20 gauge needle without the cannulation and aspirated approximately 5 cc of the blood. That was not enough however he transferred the blood to ar and I injected this 5 cc into epidural Touhy needle. At this moment the decision was made to disconnect the patient's IV and obtain blood from IV site. It probably was the only good vein the patient had in periphery in the arms. Hip prepped with ChloraPrep the vicinity of IV site and IV tubing, he disconnected IV line from the catheter in the vein and allowed 3-4 mL of the blood to flow out of the catheter. After that he sterilely connected 10 cc syringe to the open catheter and obtained 10 cc of fresh blood out of the patient's right median vein. After that he passed the syringe to me and reconnected the IV side. At this moment I got the 10 cc of blood in the syringe connected to the Tuohy needle and injected into the patient's epidural space. The needle was removed, sterile Band-Aid was applied. The patient tolerated procedure well. He reported 30 minutes after the procedure his headache almost gone.
[2021-01-31] MEDS: Clindamycin Phosphate/D5W 600 MG/50 ML PIGGYBACK 100 MG IV (17:20)
[2021-01-31] MEDS: Lactated Ringers 1,000 ML 100 ML IVCONT (18:30)
[2021-02-01] VITALS (8 sets, daily range): BP systolic 100–147; BP diastolic 57–78; PULSE 53–62; RESP 14–18; TEMP 35.9–36.6; O2SAT 97–100
[2021-02-01] MEDS: HYDROmorphone HCl 0.5 MG/0.5 ML SYRINGE IVPUSH ×8 (00:39→23:44)
[2021-02-01] MEDS: 0.9 % Sodium Chloride Flush 3 ML SYRINGE IVFLUSH (00:41)
[2021-02-01] MEDS: Clindamycin Phosphate/D5W 600 MG/50 ML PIGGYBACK 100 MG IV ×3 (02:40→17:46)
[2021-02-01] MEDS: Lactated Ringers 1,000 ML 100 ML IVCONT ×2 (05:19→15:27)
--- NOTE | 2021-02-01 15:01 | HO.PM.IMPN ---
Subjective Subjective Date of Service: 02/01/21 Interval History: pain Review of Systems Review of Systems: Yes all other systems are reviewed and are negative Physical Exam Vital Signs: Vital Signs: Last Vital Signs Temp 97.1 F 02/01/21 11:38 Pulse 53 02/01/21 11:38 Resp 18 02/01/21 13:01 BP 100/57 L 02/01/21 11:38 Pulse Ox 100 02/01/21 11:38 Body Mass Index 24.5 General: AO X 3, in pain Resp: CTA bilateral CVS: S1,S2,RRR GI: soft, non tender, non distended Neuro: motor grossly intact Psych: appropriate affect Objective Data Current Medications Generic Name Dose Route Start Last Admin Trade Name Freq PRN Reason Stop Dose Admin Hydromorphone HCl 0.5 mg 01/30/21 22:10 02/01/21 09:21 Hydromorphone Hcl 0.5 Mg/0.5 Ml Syringe IVPUSH 0.5 mg Q4H PRN Administration Pain, Severe (Pain Scale 7-10) Lactated Ringer's 1,000 mls @ 100 mls/hr 01/31/21 17:15 02/01/21 13:23 Lr IVCONT Not Given .Q10H KELTON Clindamycin Phosphate 600 mg in 50 mls @ 100 mls/hr 02/01/21 02:00 02/01/21 10:02 Cleocin IV Infused Q8H KELTON Infusion Melatonin 6 mg 01/30/21 22:10 Melatonin 3 Mg Tablet PO BEDTIME PRN Insomnia Ondansetron HCl 4 mg 01/30/21 22:10 Ondansetron Hcl 4 Mg/2 Ml Vial IVPUSH Q8H PRN Nausea and Vomiting Pharmacy Consult 1 each 01/30/21 20:22 Consult Rx Perform Med Rec MISCELLANE ONCE PRN Consult order Sodium Chloride 3 ml 01/31/21 00:00 02/01/21 07:51 0.9 % Sodium Chloride Flush 3 Ml Syringe IVFLUSH Not Given QSHIFT [facility] Labs CBC & Chem 7: 01/31/21 05:45 01/31/21 05:45 Assessment and Plan (1) Chronic pain syndrome: Status: Acute Assessment and Plan: 55M post intrathecal pump, presented with headaches headaches s/p blood patch 01/31/21 pain control Quality Stroke Does the patient have a stroke diagnosis?: No VTE Prior VTE?: No VTE Risk Level:: Medical - moderate - high VTE Device Contraindication: N/A - Device Ordered VTE Drug Contraindication: Treatment Not Indicated
--- NOTE | 2021-02-01 16:26 | MHC.CM.PN ---
EMR REVIEWED, PT HAD BLOOD PATCH ON 01/31, NOT READY FOR D/C, ANTICIPATE D/C OVER W/E. D/C PLAN: HOME SELF-CARE, FAMILY FOR TRANSPORT.
[2021-02-02] MEDS: Lactated Ringers 1,000 ML 100 ML IVCONT ×3 (02:10→23:42)
[2021-02-02] MEDS: Clindamycin Phosphate/D5W 600 MG/50 ML PIGGYBACK 100 MG IV ×3 (02:17→17:45)
[2021-02-02 04:00] VITALS: BP 108/57; PULSE 67; RESP 18; TEMP 36.3; O2SAT 96
[2021-02-02] MEDS: HYDROmorphone HCl 0.5 MG/0.5 ML SYRINGE IVPUSH ×5 (04:23→21:32)
[2021-02-02 07:20] VITALS: BP 110/58; PULSE 62; RESP 17; TEMP 36.4; O2SAT 96
--- NOTE | 2021-02-02 09:09 | HO.PAINCONS ---
Review of Systems Constitutional: Constitutional: Reports no additional constitutional complaints, Denies body ache(s), Denies chills, Denies daytime sleepiness, Reports headache(s), Reports lethargy, Reports poor appetite and Denies weakness ENT: Reports headache(s) and Denies disequilibrium Cardiovascular: Cardiovascular: Reports no additional cardiovascular complaints and Denies dyspnea Respiratory: Respiratory: Reports no additional respiratory complaints and Denies dyspnea Gastrointestinal: Gastrointestinal: Denies abdominal pain Musculoskeletal: Musculoskeletal: Reports as per HPI, Denies abnormal gait and Denies numbness Neurologic: Denies Neuro-related abnormal movements, Denies abnormal gait, Reports headache(s), Denies numbness, Denies radicular pain, Denies seizure-like activity, Denies paresthesias, Denies disequilibrium and Denies weakness Psychiatric: Psychiatric: Reports no additional psychiatric complaints PMF Past Medical History Medical History (Updated 02/02/21 @ 09:34 by Carlitos Yuen MD) Acquired absence of kidney Cancer of kidney Chronic pain syndrome COVID-19 vaccine series completed Generalized abdominal pain Gout attack History of gout Mild heartburn Post-dural puncture headache Surgical History (Updated 02/02/21 @ 09:34 by Carlitos Yuen MD) History of abdominal surgery History of orchiectomy History of right nephrectomy Hx of colonoscopy Status post insertion of intrathecal pump Social History Social History Are you a primary social worker palliative care to a significant other at home: No Do you presently have visiting nurse or other home services: No (Sister is a nurse) Alcohol intake: current Alcohol intake frequency: holidays/special occasions only Patient Tobacco Use Status: Current everyday Tobacco user Tobacco use type: Cigarette Cigarette Packs Per Day: 0.5 Cigarettes Per Day: 10.0 Years Smoked: 35 Second Hand Smoke Exposure: No Use of substances other than those prescribed or required for medical reasons: Yes Substance Use Type: Marijuana Substance Use Frequency: Occasionally Currently Displaying Signs/Symptoms of Drug Intoxication Withdrawal: No Advance Directives: Yes Advance Directives Information Provided: No Advance Directives on File: No Do you have thoughts of harming others: None Do you have a plan to hurt others: No Plan service: No Current occupational status: disabled Physical Exam Vital Signs: Vital Signs: Last Vital Signs Temp 97.5 F 02/02/21 07:20 Pulse 62 02/02/21 07:20 Resp 17 02/02/21 07:20 BP 110/58 L 02/02/21 07:20 Pulse Ox 96 02/02/21 07:20 Body Mass Index 24.5 Const: General: cooperative, in distress and anxious Nutritional Appearance: average body habitus Orientation/consciousness: patient oriented x3 Limitations: physical limitations and other limitations (Difficulty of ambulation with all current conditions) Eyes: Pupils: Equal, round and reactive pupils present EOM: EOMs intact bilaterally Neck: Neck: Yes normal visual inspection Chest: Chest palpation & inspection: normal inspection of the chest Resp: Effort & Inspection: able to speak in complete sentences, normal respiratory pattern, no audible wheezes and no cough Auscultation: clear to auscultation bilaterally Cardio: Jugular venous distension: no JVD Rate: regular rate Rhythm: regular rhythm Heart sounds: S1 normal heart sound present and S2 normal heart sound present GI: Inspection: Yes normal to inspection and No distended Palpation (GI): Soft to palpation, nontender and no guarding Back/Spine/Pelvis: Other: The dressings were removed from the patient's back and the wounds were exposed the incision lines are very innocent looking. [place] are competent. There is no redness no swelling no pathological discharge minor tenderness on palpation in projection of the right side of the postoperative wound but there is no swelling in the area. The wound in the left upper buttock implantation site tenderness is absent on palpation there is no pathological discharge, the karin are competent no redness no swelling no tenderness of palpation. Patient reports very minimal if any abdominal pain! Neuro: General: patient oriented x3 Cranial nerves: Yes Equal, round and reactive pupils present Extrem: Other: Bilaterally feet are swollen mostly at distal points at the toes and metatarsal area. The joints are enlarged. The skin is red more on the right and less on the left foot. Assessment and Plan (1) Acquired absence of kidney: Status: Acute (2) Cancer of left kidney: Status: Acute (3) Generalized abdominal pain: Status: Acute (4) Chronic pain syndrome: Status: Acute (5) Post-dural puncture headache: Status: Acute (6) Gout attack: Status: Acute (7) History of gout: Status: Acute (8) Status post insertion of intrathecal pump: Status: Acute Assessment and Plan: 1. Continue IV hydration about 75-100 cc/hour. 2. Continue caffeinated beverages such is strong coffee, dark chocolate, Coca-Cola, Pepsi Cola, Dr. Rinaldi and such. 3. If patient's headache is severe Fioricet can be given p.r.n. 4. Continue oral oxycodone up 10 mg q.6 hours p.r.n. pain. 5. Continue IV clindamycin. If patient is discharged he needs to continue oral clindamycin until day 14 postoperatively as per pain management protocols. The prescription is sent to the pharmacy as of 01/31/2021. 6. Consider colchicine as a treatment of acute gout exacerbation. 7. Consider allopurinol as a treatment of gout. 8. Dressing change on the wound does not have to be done every day unless the dressing for all of. If that occurred I recommend Betadine prep and dry sterile 4x4s applied to the area of the wounds. Hip wounds dry. Avoid showers. Sponge bath only. Inform office if discharge is planned follow-up appointment will be scheduled.
[2021-02-02] MEDS: predniSONE 20 MG TABLET 40 MG PO (09:27)
--- NOTE | 2021-02-02 09:31 | P.PNIM_ITS ---
Subjective Subjective Date of Service: 02/02/21 Interval History: left toe pain Constitutional Constitutional: Reports no additional constitutional complaints Eyes Eyes: Reports no additional eye complaints Physical Exam Vital Signs: Vital Signs: Last Vital Signs Temp 97.5 F 02/02/21 07:20 Pulse 62 02/02/21 07:20 Resp 17 02/02/21 07:20 BP 110/58 L 02/02/21 07:20 Pulse Ox 96 02/02/21 07:20 Body Mass Index 24.5 General: AO X 3, in pain Resp: CTA bilateral CVS: S1,S2,RRR GI: soft, non tender, non distended Neuro: motor grossly intact Psych: appropriate affect left toe pascual and swelling Objective Data Current Medications Generic Name Dose Route Start Last Admin Trade Name Freq PRN Reason Stop Dose Admin Hydromorphone HCl 0.5 mg 01/30/21 22:10 02/02/21 04:23 Hydromorphone Hcl 0.5 Mg/0.5 Ml Syringe IVPUSH 0.5 mg Q4H PRN Administration Pain, Severe (Pain Scale 7-10) Lactated Ringer's 1,000 mls @ 100 mls/hr 01/31/21 17:15 02/02/21 02:10 Lr IVCONT 100 mls/hr .Q10H KELTON Administration Clindamycin Phosphate 600 mg in 50 mls @ 100 mls/hr 02/01/21 02:00 02/02/21 04:22 Cleocin IV Infused Q8H KELTON Infusion Melatonin 6 mg 01/30/21 22:10 Melatonin 3 Mg Tablet PO BEDTIME PRN Insomnia Ondansetron HCl 4 mg 01/30/21 22:10 Ondansetron Hcl 4 Mg/2 Ml Vial IVPUSH Q8H PRN Nausea and Vomiting Oxycodone HCl 10 mg 02/02/21 09:27 Oxycodone Hcl Immed Release 5 Mg Tablet PO Q4H PRN pain Pharmacy Consult 1 each 01/30/21 20:22 Consult Rx Perform Med Rec MISCELLANE ONCE PRN Consult order Prednisone 40 mg 02/02/21 09:30 Prednisone 20 Mg Tablet PO DAILY KELTON Sodium Chloride 3 ml 01/31/21 00:00 02/02/21 07:29 0.9 % Sodium Chloride Flush 3 Ml Syringe IVFLUSH Not Given QSHIFT [facility] Labs CBC & Chem 7: 08/05/21 05:45 01/31/21 05:45 Assessment and Plan (1) Status post insertion of intrathecal pump: Status: Acute Assessment and Plan: 55M post intrathecal pump, presented with headaches headaches s/p blood patch 01/31/21 pain control left toe gout prednisone Quality Stroke Does the patient have a stroke diagnosis?: No VTE Prior VTE?: No VTE Risk Level:: Medical - moderate - high VTE Device Contraindication: N/A - Device Ordered VTE Drug Contraindication: Treatment Not Indicated
[2021-02-02] MEDS: oxyCODONE HCl Immed Release 5 MG TABLET 10 MG PO ×4 (10:31→23:41)
--- NOTE | 2021-02-02 11:29 | MHC.CM.PN ---
PER CONVERSATION WITH HOSPITALIST, NO PLAN FOR DISCHARGE TODAY. CASE MANAGEMENT CONTINUING TO FOLLOW.
[2021-02-02 11:59] VITALS: BP 114/70; PULSE 66; RESP 17; TEMP 36.2; O2SAT 97
[2021-02-02 15:17] VITALS: BP 111/57; PULSE 70; RESP 20; TEMP 36; O2SAT 95
[2021-02-02 19:17] VITALS: BP 113/62; PULSE 62; RESP 20; TEMP 36.3; O2SAT 97
[2021-02-02 23:24] VITALS: BP 100/53; PULSE 65; RESP 18; TEMP 36.4; O2SAT 96
[2021-02-03] MEDS: Clindamycin Phosphate/D5W 600 MG/50 ML PIGGYBACK 100 MG IV ×3 (01:59→17:30)
[2021-02-03] MEDS: HYDROmorphone HCl 0.5 MG/0.5 ML SYRINGE IVPUSH ×5 (02:09→21:48)
[2021-02-03 03:33] VITALS: BP 116/68; PULSE 62; RESP 18; TEMP 36.4; O2SAT 98
[2021-02-03] MEDS: oxyCODONE HCl Immed Release 5 MG TABLET 10 MG PO ×4 (04:28→18:13)
[2021-02-03 07:31] VITALS: BP 113/70; PULSE 65; RESP 17; TEMP 36.3; O2SAT 97
--- NOTE | 2021-02-03 09:42 | MHC.CM.PN ---
PT CLEARED TO DC HOME TODAY WITH NO SERVICES. PT TO ARRANGE TRANSPORTATION
[2021-02-03] MEDS: predniSONE 20 MG TABLET 40 MG PO (09:49)
--- NOTE | 2021-02-03 10:06 | HO.PM.IMPN ---
Subjective Subjective Date of Service: 02/03/21 Interval History: pain, gout improved Constitutional Constitutional: Reports no additional constitutional complaints Eyes Eyes: Reports no additional eye complaints Physical Exam Vital Signs: Vital Signs: Last Vital Signs Temp 97.4 F 02/03/21 07:31 Pulse 65 02/03/21 07:31 Resp 17 02/03/21 07:31 BP 113/70 02/03/21 07:31 Pulse Ox 97 02/03/21 07:31 Body Mass Index 24.5 General: AO X 3, in pain Resp:? CTA bilateral CVS: S1,S2,RRR GI: soft, non tender, non distended Neuro:? motor grossly intact Psych: appropriate affect left toe pascual and swelling Objective Data Current Medications Generic Name Dose Route Start Last Admin Trade Name Freq PRN Reason Stop Dose Admin Hydromorphone HCl 0.5 mg 01/30/21 22:10 02/03/21 06:26 Hydromorphone Hcl 0.5 Mg/0.5 Ml Syringe IVPUSH 0.5 mg Q4H PRN Administration Pain, Severe (Pain Scale 7-10) Lactated Ringer's 1,000 mls @ 100 mls/hr 01/31/21 17:15 02/03/21 09:58 Lr IVCONT Infused .Q10H K[facility] Infusion Clindamycin Phosphate 600 mg in 50 mls @ 100 mls/hr 02/01/21 02:00 02/03/21 09:53 Cleocin IV 100 mls/hr Q8H [place] Administration Melatonin 6 mg 01/30/21 22:10 Melatonin 3 Mg Tablet PO BEDTIME PRN Insomnia Ondansetron HCl 4 mg 01/30/21 22:10 Ondansetron Hcl 4 Mg/2 Ml Vial IVPUSH Q8H PRN Nausea and Vomiting Oxycodone HCl 10 mg 02/02/21 09:27 02/03/21 09:49 Oxycodone Hcl Immed Release 5 Mg Tablet PO 10 mg Q4H PRN Administration pain Pharmacy Consult 1 each 01/30/21 20:22 Consult Rx Perform Med Rec MISCELLANE ONCE PRN Consult order Prednisone 40 mg 02/02/21 09:30 02/03/21 09:49 Prednisone 20 Mg Tablet PO 40 mg DAILY KELTON Administration Sodium Chloride 3 ml 01/31/21 00:00 02/03/21 07:31 0.9 % Sodium Chloride Flush 3 Ml Syringe IVFLUSH Not Given QSHIFT [place] Trazodone HCl 25 mg 02/02/21 09:58 Trazodone Hcl 25 Mg Halftab PO BEDTIME PRN insonia Labs CBC & Chem 7: 01/31/21 05:45 01/31/21 05:45 Assessment and Plan (1) Status post insertion of intrathecal pump: Status: Acute Assessment and Plan: 55M post intrathecal pump, presented with headaches headaches s/p blood patch 01/31/21 pain control left toe gout prednisone some improvement still reporting too much pain to manage at home Quality Stroke Does the patient have a stroke diagnosis?: No VTE Prior VTE?: No VTE Risk Level:: Medical - moderate - high VTE Device Contraindication: N/A - Device Ordered VTE Drug Contraindication: Treatment Not Indicated
[2021-02-03] MEDS: Lactated Ringers 1,000 ML 100 ML IVCONT (11:58)
[2021-02-03 12:00] VITALS: BP 127/70; PULSE 60; RESP 18; TEMP 36.2; O2SAT 97
[2021-02-03 15:16] VITALS: BP 115/62; PULSE 61; RESP 20; TEMP 36.1; O2SAT 96
[2021-02-03 19:08] VITALS: BP 112/64; PULSE 64; RESP 19; TEMP 36.2; O2SAT 97
[2021-02-03] MEDS: Melatonin 3 MG TABLET 6 MG PO ×2 (21:48→21:49)
[2021-02-03 23:39] VITALS: BP 128/64; PULSE 65; RESP 16; TEMP 36.4; O2SAT 97
[2021-02-04] VITALS (7 sets, daily range): BP systolic 110–145; BP diastolic 62–78; PULSE 51–60; RESP 18–20; TEMP 36–36.9; O2SAT 96–98
[2021-02-04] MEDS: oxyCODONE HCl Immed Release 5 MG TABLET 10 MG PO ×4 (00:20→20:25)
[2021-02-04] MEDS: HYDROmorphone HCl 0.5 MG/0.5 ML SYRINGE IVPUSH ×4 (03:36→18:30)
[2021-02-04] MEDS: Clindamycin Phosphate/D5W 600 MG/50 ML PIGGYBACK 100 MG IV ×3 (03:37→18:33)
[2021-02-04] MEDS: 0.9 % Sodium Chloride Flush 3 ML SYRINGE IVFLUSH ×2 (08:17→15:56)
[2021-02-04] MEDS: predniSONE 20 MG TABLET 40 MG PO (08:19)
--- NOTE | 2021-02-04 12:20 | HO.PM.IMPN ---
Subjective Subjective Date of Service: 02/04/21 Interval History: still with pain, but improving Constitutional Constitutional: Reports no additional constitutional complaints Eyes Eyes: Reports no additional eye complaints Physical Exam Vital Signs: Vital Signs: Last Vital Signs Temp 97.0 F 02/04/21 11:46 Pulse 55 02/04/21 11:46 Resp 18 02/04/21 11:46 BP 110/75 02/04/21 11:46 Pulse Ox 96 02/04/21 11:46 Body Mass Index 24.5 General: AO X 3, in pain Resp:? CTA bilateral CVS: S1,S2,RRR GI: soft, non tender, non distended Neuro:? motor grossly intact Psych: appropriate affect left toe pascual and swelling Objective Data Current Medications Generic Name Dose Route Start Last Admin Trade Name Freq PRN Reason Stop Dose Admin Hydromorphone HCl 0.5 mg 01/30/21 22:10 02/04/21 08:16 Hydromorphone Hcl 0.5 Mg/0.5 Ml Syringe IVPUSH 0.5 mg Q4H PRN Administration Pain, Severe (Pain Scale 7-10) Clindamycin Phosphate 600 mg in 50 mls @ 100 mls/hr 02/01/21 02:00 02/04/21 11:40 Cleocin IV Infused Q8H K[facility] Infusion Melatonin 6 mg 01/30/21 22:10 02/03/21 21:49 Melatonin 3 Mg Tablet PO 6 mg BEDTIME PRN Administration Insomnia Ondansetron HCl 4 mg 01/30/21 22:10 Ondansetron Hcl 4 Mg/2 Ml Vial IVPUSH Q8H PRN Nausea and Vomiting Oxycodone HCl 10 mg 02/02/21 09:27 02/04/21 11:00 Oxycodone Hcl Immed Release 5 Mg Tablet PO 10 mg Q4H PRN Administration pain Pharmacy Consult 1 each 01/30/21 20:22 Consult Rx Perform Med Rec MISCELLANE ONCE PRN Consult order Prednisone 40 mg 02/02/21 09:30 02/04/21 08:19 Prednisone 20 Mg Tablet PO 40 mg DAILY KELTON Administration Sodium Chloride 3 ml 01/31/21 00:00 02/04/21 08:17 0.9 % Sodium Chloride Flush 3 Ml Syringe IVFLUSH 3 ml QSHIFT [place] Administration Trazodone HCl 25 mg 02/02/21 09:58 Trazodone Hcl 25 Mg Halftab PO BEDTIME PRN insonia Labs CBC & Chem 7: 01/31/21 05:45 01/31/21 05:45 Assessment and Plan (1) Status post insertion of intrathecal pump: Status: Acute Assessment and Plan: 55M post intrathecal pump, presented with headaches headaches s/p blood patch 01/31/21 pain control left toe gout prednisone day 3 some improvement still reporting too much pain to manage at home Quality Stroke Does the patient have a stroke diagnosis?: No VTE Prior VTE?: No VTE Risk Level:: Medical - moderate - high VTE Device Contraindication: N/A - Device Ordered VTE Drug Contraindication: Treatment Not Indicated
--- NOTE | 2021-02-04 13:28 | MHC.CM.PN ---
PER MULYIDISCIPLINARY ROUNDS PT REPORTING NOT READY FRO D/C TODAY, ANTICIPATE D/C TOMORROW 02/05/21. D/C PLAN: HOME SELF-CARE, FAMILY FOR TRANSPORT.
[2021-02-04] MEDS: Melatonin 3 MG TABLET 6 MG PO (20:29)
[2021-02-04] MEDS: traZODone HCL 25 MG HALFTAB PO (22:45)
[2021-02-05] VITALS (7 sets, daily range): BP systolic 106–128; BP diastolic 61–70; PULSE 56–69; RESP 16–18; TEMP 35.7–36.5; O2SAT 96–98
[2021-02-05] MEDS: oxyCODONE HCl Immed Release 5 MG TABLET 10 MG PO ×5 (00:06→23:21)
[2021-02-05] MEDS: 0.9 % Sodium Chloride Flush 3 ML SYRINGE IVFLUSH ×4 (00:07→19:47)
[2021-02-05] MEDS: HYDROmorphone HCl 0.5 MG/0.5 ML SYRINGE IVPUSH ×4 (02:43→19:46)
[2021-02-05] MEDS: Clindamycin Phosphate/D5W 600 MG/50 ML PIGGYBACK 100 MG IV ×3 (02:56→17:12)
[2021-02-05] MEDS: predniSONE 20 MG TABLET 40 MG PO (09:04)
--- NOTE | 2021-02-05 09:27 | HO.PM.IMPN ---
Subjective Subjective Date of Service: 02/05/21 Interval History: still with back pain, headache, left first toe pain improved Constitutional Constitutional: Reports no additional constitutional complaints Eyes Eyes: Reports no additional eye complaints Physical Exam Vital Signs: Vital Signs: Last Vital Signs Temp 96.8 F 02/05/21 07:51 Pulse 59 02/05/21 07:51 Resp 17 02/05/21 07:51 BP 106/61 02/05/21 07:51 Pulse Ox 97 02/05/21 07:51 Body Mass Index 24.5 General: AO X 3, in pain Resp:? CTA bilateral CVS: S1,S2,RRR GI: soft, non tender, non distended Neuro:? motor grossly intact Psych: appropriate affect Objective Data Current Medications Generic Name Dose Route Start Last Admin Trade Name Freq PRN Reason Stop Dose Admin Hydromorphone HCl 0.5 mg 02/05/21 00:01 02/05/21 09:04 Hydromorphone Hcl 0.5 Mg/0.5 Ml Syringe IVPUSH 0.5 mg Q4H PRN Administration Pain, Severe (Pain Scale 7-10) Protocol Clindamycin Phosphate 600 mg in 50 mls @ 100 mls/hr 02/01/21 02:00 02/05/21 09:04 Cleocin IV 100 mls/hr Q8H KEL[place] Administration Melatonin 6 mg 01/30/21 22:10 02/04/21 20:29 Melatonin 3 Mg Tablet PO 6 mg BEDTIME PRN Administration Insomnia Ondansetron HCl 4 mg 01/30/21 22:10 Ondansetron Hcl 4 Mg/2 Ml Vial IVPUSH Q8H PRN Nausea and Vomiting Oxycodone HCl 10 mg 02/02/21 09:27 02/05/21 05:46 Oxycodone Hcl Immed Release 5 Mg Tablet PO 10 mg Q4H PRN Administration pain Pharmacy Consult 1 each 01/30/21 20:22 Consult Rx Perform Med Rec MISCELLANE ONCE PRN Consult order Prednisone 40 mg 02/02/21 09:30 02/05/21 09:04 Prednisone 20 Mg Tablet PO 40 mg DAILY KELTON Administration Sodium Chloride 3 ml 01/31/21 00:00 02/05/21 09:08 0.9 % Sodium Chloride Flush 3 Ml Syringe IVFLUSH 3 ml QSHIFT [place] Administration Trazodone HCl 25 mg 02/02/21 09:58 02/04/21 22:45 Trazodone Hcl 25 Mg Halftab PO 25 mg BEDTIME PRN Administration insonia Labs CBC & Chem 7: 01/31/21 05:45 01/31/21 05:45 Assessment and Plan (1) Status post insertion of intrathecal pump: Status: Acute Assessment and Plan: 55M post intrathecal pump, presented with headaches post dural headaches s/p blood patch 01/31/21 pain contro, patient now wants to try stopping pump to see if that alleviates symptoms constipation dulcolax 10mg pr left 1st toe gout prednisone day 4 reports significant improvement Quality Stroke Does the patient have a stroke diagnosis?: No VTE Prior VTE?: No VTE Risk Level:: Medical - moderate - high VTE Device Contraindication: N/A - Device Ordered VTE Drug Contraindication: Treatment Not Indicated
[2021-02-05] MEDS: bisacodyL 10 MG SUPP.RECT PR (09:46)
--- NOTE | 2021-02-05 14:24 | MHC.CM.PN ---
CM ET W/PT THIS MORNING, PT REPORTED HE HAD CALLED PAIN CLINIC AND ASKED FOR A DR TO COME TO [facility] TO SHUT OFF HIS PAIN PUMP, PT REPORTS HIS DR AND MIA [facility] IMPLANTED DEVICE IS ON VACATION, PT REPORTS PUMP HAS BEEN CAUSING HIM MORE PAIN SINCE IMPLANTED LAST THURSDAY, INFO REPORTED TO CM DIRECTOR AND HOSPITALIST IN ROUNDS, PER CM DIRECTOR SHE HAS CALL OUT TO PAIN CLINIC TO VERIFY INFO AND REPORTED PT'S DR IS ON VACATION AND THE OTHER DR IS IN SURGERY AND MAY SEE PT, CM DIRECTOR TO NOTIFY THIS CM IF/WHEN PAIN CLINIC FOLLOWS UP W/PT. UNCLEAR OF PAIN MED PLAN AT THIS TIME HOWEVER PT HAS BEEN RECEIVING BOTH IV DILAUDID AND ORAL OXYCODONE. CM TO CONT TO FOLLOW.
[2021-02-05] MEDS: traZODone HCL 25 MG HALFTAB PO (23:21)
[2021-02-05] MEDS: Melatonin 3 MG TABLET 6 MG PO (23:21)
[2021-02-06] VITALS (8 sets, daily range): BP systolic 99–142; BP diastolic 61–71; PULSE 51–69; RESP 15–20; TEMP 36–37.1; O2SAT 96–98
[2021-02-06] MEDS: Clindamycin Phosphate/D5W 600 MG/50 ML PIGGYBACK 100 MG IV ×3 (01:56→17:17)
[2021-02-06] MEDS: HYDROmorphone HCl 0.5 MG/0.5 ML SYRINGE IVPUSH ×4 (06:22→23:52)
[2021-02-06] MEDS: oxyCODONE HCl Immed Release 5 MG TABLET 10 MG PO ×4 (08:16→21:24)
[2021-02-06] MEDS: predniSONE 20 MG TABLET 40 MG PO (08:17)
[2021-02-06] MEDS: 0.9 % Sodium Chloride Flush 3 ML SYRINGE IVFLUSH ×3 (08:17→21:21)
--- NOTE | 2021-02-06 13:53 | HO.PAINCONS ---
Review of Systems Review of Systems: Yes all other systems are reviewed and are negative REPLACED BY [facility] Past Medical History Medical History (Updated 02/02/21 @ 09:34 by Carlitos Yuen MD) Acquired absence of kidney Cancer of kidney Chronic pain syndrome COVID-19 vaccine series completed Generalized abdominal pain Gout attack History of gout Mild heartburn Post-dural puncture headache Surgical History (Updated 02/02/21 @ 09:34 by Carlitos Yuen MD) History of abdominal surgery History of orchiectomy History of right nephrectomy Hx of colonoscopy Status post insertion of intrathecal pump Social History Social History Are you a primary wound care technician to a significant other at home: No Do you presently have visiting nurse or other home services: No (Sister is a nurse) Alcohol intake: current Alcohol intake frequency: holidays/special occasions only Patient Tobacco Use Status: Current everyday Tobacco user Tobacco use type: Cigarette Cigarette Packs Per Day: 0.5 Cigarettes Per Day: 10.0 Years Smoked: 35 Second Hand Smoke Exposure: No Substance Use Type: Marijuana service: No Current occupational status: disabled Physical Exam Vital Signs: Vital Signs: Last Vital Signs Temp 98.0 F 02/06/21 11:15 Pulse 61 02/06/21 11:15 Resp 15 02/06/21 11:15 BP 99/61 02/06/21 11:15 Pulse Ox 98 02/06/21 11:15 Body Mass Index 24.5 On exam today: Appears afebrile. Alert and oriented. Mood and affect appropriate. Follows and participates in conversation appropriately. Respiratory effort is unlabored. Assessment and Plan (1) Post-dural puncture headache: Status: Acute Assessment and Plan: 55-year-old male with a recent history of intrathecal pump placement complicated by developing a postdural puncture headache. Patient underwent a blood patch with Dr. Yuen last week that was somewhat helpful in relieving his neck symptoms. However he returns to the emergency room complaining of severe pain in his eyes and temples. He was maintained in observation status over the past few days and treated with IV Dilaudid and oxycodone. His symptoms have been continuing although they been less severe than his original PDPH. Pain today is mostly around the eyes and in the temples, worse with sitting up, and worst with standing up. He endorses nausea and decreased appetite though he was able to eat his breakfast and lunch. He reports excellent pain relief from the intrathecal fentanyl for his abdominal pain symptoms. Lying flat makes his symptoms better. He endorses photophobia and has been laying flat mostly with his eyes closed. Pain symptoms have been treated with opioids. He is not currently on caffeine/Fioricet/acetaminophen. Hydration has been mostly p.o. Erasmo's current symptoms are most likely secondary to a low-pressure headache. His last blood patch was somewhat helpful but he continues to endorse significant residual symptoms. He is amenable to repeating the blood patch. I did review the records and it seems like 15 mL of blood was injected during the last blood patch. We will plan to repeat a blood patch in the OR later today with good IV access and hopefully inject greater than 20 cc. Recommend discontinuing IV opioids. May continue p.o. oxycodone for breakthrough postsurgical pain only. The headache should be treated with Fioricet and hydration going forward. If he is stable post blood patch, he can be discharged home with follow-up in the clinic next week.
--- NOTE | 2021-02-06 14:53 | PC.NURSE ---
PATIENT TO PACU. REPORT TO Manoj QUINTANILLA RN.
--- NOTE | 2021-02-06 15:37 | HO.PM.IMPN ---
Subjective Subjective Date of Service: 02/06/21 Interval History: the patient was seen and evaluated this morning Laying in bed, feels comfortable Headache has improved but still persisting Pain is under better control Denies any fever, chills or shortness of breath No reported other overnight events. Systemic review: No fever, chills or weakness No chest pain, palpitation No shortness of breath or coughing No abdominal pain, nausea or vomiting No urinary symptoms No any rash or wounds Physical Exam Vital Signs: Vital Signs: Last Vital Signs Temp 98.8 F 02/06/21 14:16 Pulse 64 02/06/21 14:16 Resp 18 02/06/21 14:16 BP 113/70 02/06/21 14:16 Pulse Ox 98 02/06/21 14:16 Body Mass Index 24.5 Const: Other: Constitutional : Alert, oriented, not in distress Neck : Normal inspection, Supple Cardiovascular : RRR, S1 S2, no lower extremity edema Respiratory : Good bilateral air entry, no crackles, wheezes or rhonchi Gastrointestinal: soft, lax, Normal bowel sounds, Non tender Skin : Warm, Dry Neurological : Alert & oriented x3, No focal deficit Objective Data Current Medications Generic Name Dose Route Start Last Admin Trade Name Freq PRN Reason Stop Dose Admin Hydromorphone HCl 0.5 mg 02/05/21 00:01 02/06/21 10:57 Hydromorphone Hcl 0.5 Mg/0.5 Ml Syringe IVPUSH 0.5 mg Q4H PRN Administration Pain, Severe (Pain Scale 7-10) Protocol Clindamycin Phosphate 600 mg in 50 mls @ 100 mls/hr 02/01/21 02:00 02/06/21 08:51 Cleocin IV Infused Q8H KELTON Infusion Melatonin 6 mg 01/30/21 22:10 02/05/21 23:21 Melatonin 3 Mg Tablet PO 6 mg BEDTIME PRN Administration Insomnia Ondansetron HCl 4 mg 01/30/21 22:10 Ondansetron Hcl 4 Mg/2 Ml Vial IVPUSH Q8H PRN Nausea and Vomiting Oxycodone HCl 10 mg 02/02/21 09:27 02/06/21 13:16 Oxycodone Hcl Immed Release 5 Mg Tablet PO 10 mg Q4H PRN Administration pain Pharmacy Consult 1 each 01/30/21 20:22 Consult Rx Perform Med Rec MISCELLANE ONCE PRN Consult order Prednisone 40 mg 02/02/21 09:30 02/06/21 08:17 Prednisone 20 Mg Tablet PO 40 mg DAILY KELTON Administration Sodium Chloride 3 ml 01/31/21 00:00 02/06/21 08:17 0.9 % Sodium Chloride Flush 3 Ml Syringe IVFLUSH 3 ml QSHIFT KELTON Administration Trazodone HCl 25 mg 02/02/21 09:58 02/05/21 23:21 Trazodone Hcl 25 Mg Halftab PO 25 mg BEDTIME PRN Administration insonia Labs CBC & Chem 7: 01/31/21 05:45 01/31/21 05:45 Assessment and Plan (1) Status post insertion of intrathecal pump: Status: Acute (2) Gout attack: Status: Acute (3) Headache: Status: Acute Assessment and Plan: 55M post intrathecal pump, presented with headaches post dural headaches s/p blood patch 01/31/21 pain under fair control, to review the need of the pump Pain Team so the patient, to do a blood patch today On clindamycin per pain surgeon constipation dulcolax 10mg pr left 1st toe gout prednisone day 5 reports significant improvement Quality Stroke Does the patient have a stroke diagnosis?: No VTE Prior VTE?: No VTE Risk Level:: Medical - moderate - high VTE Device Contraindication: N/A - Device Ordered VTE Drug Contraindication: Treatment Not Indicated
--- NOTE | 2021-02-06 16:02 | PM.OP ---
Brief Operative Note Date of Service: 02/06/21 Pre-op diagnosis: Postdural puncture headache Post-op diagnosis: same Procedure: Epidural blood patch Surgeon: Charanjit Conn MD Anesthesia: local Was an Pneumatic Tube Fitter used for this Procedure?: No Estimated blood loss (mL): 3 Pathology: none sent Condition: stable Disposition: PACU
--- NOTE | 2021-02-06 16:04 | W.PM.OPN ---
Operative Note Operative Note Date of Service: 02/06/21 Narrative: Interlaminar epidural blood patch, L4/5, Left parasagital After obtaining written consent, pre-procedure blood pressure and heart rate were stable and recorded in the nursing record. The patient was placed in the prone position. The lumbosacral area was widely prepped with chloraprep and draped in sterile fashion. Fluoroscopic guidance was used to identify the desired interlaminar space and for needle placement. Subcutaneous 1% lidocaine was used to anesthetize the skin overlying the target. A 20-gauge Sierra needle was advanced to the epidural space using loss of resistance to air technique and AP / contralateral oblique views under fluoroscopy. There was no evidence of heme or CSF and no paresthesias were elicited with needle placement. Confirmation of epidural needle placement was performed with 1cc of omnipaque 180. Blood was now sterilely withdrawn from an 18 gauge IV that was sterilely placed preoperatively under ultrasound guidance. Next 23 cc of blood was administered epidurally with no pain elicited on injection. Further injectate volume was abandoned due to pain noted beyond 23 cc. 7 cc of blood was wasted. The needle was removed, skin cleansed and a sterile bandage was applied. The patient tolerated the procedure well and no complications were encountered. Following the procedure the patient's vital signs were stable. The patient remained flat for 45 minutes in the recovery room. The patient was discharged home in good condition with post-procedural instructions. Time Out: Immediately prior to the procedure, the following was verbally confirmed that there is a signed consent form and that the correct patient, planned procedure, site and side are consistent with documentation and that necessary equipment and/or blood products are available prior to the start of the case. Complications: none EBL: 7 cc Plan: Recommend overnight observation and pain control with oral agents for headache and low back pain following lumbar epidural blood patch. Patient is stable overnight, he may be discharged to home tomorrow a.m.
[2021-02-07] VITALS: BP 128/74; PULSE 56; RESP 16; TEMP 36.4; O2SAT 98
[2021-02-07] MEDS: Clindamycin Phosphate/D5W 600 MG/50 ML PIGGYBACK 100 MG IV ×2 (02:03→10:08)
[2021-02-07] MEDS: oxyCODONE HCl Immed Release 5 MG TABLET 10 MG PO ×2 (02:42→08:47)
[2021-02-07] MEDS: traZODone HCL 25 MG HALFTAB PO (02:42)
[2021-02-07 04:00] VITALS: BP 123/73; PULSE 64; RESP 16; TEMP 36.1; O2SAT 98
[2021-02-07] MEDS: HYDROmorphone HCl 0.5 MG/0.5 ML SYRINGE IVPUSH ×2 (05:21→10:14)
[2021-02-07 07:52] VITALS: BP 111/74; PULSE 54; RESP 17; TEMP 36.3; O2SAT 99
[2021-02-07] MEDS: predniSONE 20 MG TABLET 40 MG PO (08:47)
[2021-02-07] MEDS: 0.9 % Sodium Chloride Flush 3 ML SYRINGE IVFLUSH (08:48)
--- NOTE | 2021-02-07 10:51 | PM.ANESPN ---
Subjective Subjective Date of Service: 02/07/21 Patient reports: no new complaints, feels better and pain is less Interval history: Headache is significantly better. Able to sit up without photophobia or retro-orbital pain. Denies nausea or vomiting. Endorses continuing low back pain which is expected following 2 rounds of epidural blood patches. Physical Exam Vital Signs: Vital Signs: Last Vital Signs Temp 97.4 F 02/07/21 07:52 Pulse 54 02/07/21 07:52 Resp 17 02/07/21 07:52 BP 111/74 02/07/21 07:52 Pulse Ox 99 02/07/21 07:52 Body Mass Index 24.5 Progress Note: A&P Assessment and plan (1) Post-dural puncture headache: Status: Acute Assessment and Plan: 55-year-old male status post insertion of intrathecal pump complicated by posterior puncture headache status post epidural blood patches x2. Symptoms today appear to be significantly improved compared to yesterday with less debilitation. Incision karin were successfully removed in OR yesterday. Okay to discharge home with outpatient follow-up with either Dr. Yuen or myself for postdural puncture headache. He may continue to have significant low back pain over the next week. Recommend short prescription of oxycodone 5 mg tablets for 5-7 days. Fall Risk Details Current Medications: Current Medications Generic Name Dose Route Start Last Admin Trade Name Genaroq PRN Reason Stop Dose Admin Hydromorphone HCl 0.5 mg 02/06/21 17:20 02/07/21 10:14 Hydromorphone Hcl 0.5 Mg/0.5 Ml Syringe IVPUSH 0.5 mg Q4H PRN Administration Pain, Severe (Pain Scale 7-10) Protocol Clindamycin Phosphate 600 mg in 50 mls @ 100 mls/hr 02/01/21 02:00 02/07/21 10:08 Cleocin IV 100 mls/hr Q8H KELTON Administration Melatonin 6 mg 01/30/21 22:10 02/05/21 23:21 Melatonin 3 Mg Tablet PO 6 mg BEDTIME PRN Administration Insomnia Ondansetron HCl 4 mg 01/30/21 22:10 Ondansetron Hcl 4 Mg/2 Ml Vial IVPUSH Q8H PRN Nausea and Vomiting Pharmacy Consult 1 each 01/30/21 20:22 Consult Rx Perform Med Rec MISCELLANE ONCE PRN Consult order Prednisone 40 mg 02/02/21 09:30 02/07/21 08:47 Prednisone 20 Mg Tablet PO 40 mg DAILY KELTON Administration Sodium Chloride 3 ml 01/31/21 00:00 02/07/21 08:48 0.9 % Sodium Chloride Flush 3 Ml Syringe IVFLUSH 3 ml QSHIFT KELTON Administration Trazodone HCl 25 mg 02/02/21 09:58 02/07/21 02:42 Trazodone Hcl 25 Mg Halftab PO 25 mg BEDTIME PRN Administration insonia Time Spent With Patient Time: Total time spent is greater than 50% in coordination of care (as documented) at patient's floor/unit and/or counseling patient: Time with patient: less than 15 minutes Progress Note: Quality Stroke Does the patient have a stroke diagnosis?: No Procedures Date of Service Date of Service: 02/07/21
--- NOTE | 2021-02-07 11:29 | P.DS_ITS ---
DS: Providers Provider Date of Service: 02/12/21 Date of admission: 01/30/21 22:10 Primary care physician: Drew Theodore MD Consults: 01/30/21 22:10 Consult to Pain Management Routine Consulting Provider: Carlitos Yuen Reason for consultation: Headache post procedure DS: Diagnosis Discharge Diagnosis (1) Post-dural puncture headache: Status: Acute (2) Headache: Status: Acute (3) Gout attack: Status: Acute (4) Dehydration: Status: Acute (5) Vomiting: Status: Acute (6) Status post insertion of intrathecal pump: Status: Acute DS: Medications Discharge Medications Home Medications: Home Medications Medication Instructions Recorded Confirmed acetaminophen 500 mg capsule 1,000 mg PO Q6H PRN 01/18/21 01/30/21 Previous Rx's Medication Instructions Recorded ondansetron HCl 4 mg tablet 4 mg PO Q8H PRN 20 Days #60 tab 01/28/21 (Zofran) clindamycin HCl 300 mg capsule 300 mg PO Q6H 10 Days #40 cap 01/31/21 prednisone 20 mg tablet 40 mg PO DAILY #10 tab 02/03/21 oxycodone 5 mg tablet 5 mg PO Q6H PRN #20 tab 02/07/21 DS: Summary Hospital Course Hospital Course: Admission note HPI 55-year-old male with a past medical history of SBO status post multiple abdominal surgeries, history of chronic abdominal pain on opiate medications at home, recently had intrathecal pump on last Thursday; presented to the hospital with a chief complaint of headache. Postprocedure he started developed headache which has gradually worsened on Thursday and has been continuous; located on the frontal area, a denies any blurry visions, nausea vomiting.? Denies any numbness tingling or focal weakness.? Denies any fevers chills. Patient also complains of pain at the procedure site; Denies any GI or symptoms. Review of all other systems is negative except mentioned above ER course:? Per ER physician, patient exam was nonfocal, neck is supple, no meningeal signs, patient afebrile; also mentioned that patient would probably does not need LP as there is less concern for meningitis.? Also mentioned that findings consistent with spinal headache secondary to the home; discussed with Dr. yuen from pain management who placed the palm recommended admission to the hospital and will put in a blood patch in the morning Hospital course Patient was admitted for evaluation of headache after placement of intrathecal pump. Images were negative for any acute findings. Believed to be spinal headache secondary to the procedure itself. Admitted to the hospital and the blood patch was done the next morning but the patient continue to have symptoms of headache, nausea and pain requiring pain management with IV and oral medicati ons. A repeat blood patch was done on 02/06/2021 with better response. Headache started to improve and he was tolerating diet much better. Finish total of 7 days of antibiotics. Started on prednisone for gout attack, to continue tapering dose at discharge. Time Spent with Patient Time attestation: Total time spent providing and/or coordinating discharge services: Discharge coordination time: Greater than 30 minutes Quality: Stroke Does the patient have a stroke diagnosis?: No Physical Exam Vital Signs: Vital Signs: Last Vital Signs Temp 97.4 F 02/07/21 07:52 Pulse 54 02/07/21 07:52 Resp 17 02/07/21 07:52 BP 111/74 02/07/21 07:52 Pulse Ox 99 02/07/21 07:52 Body Mass Index 24.5 Const: Other: Constitutional : Alert, oriented, not in distress Neck : Normal inspection, Supple Cardiovascular : RRR, S1 S2, no lower extremity edema Respiratory : Good bilateral air entry, no crackles, wheezes or rhonchi Gastrointestinal: soft, lax, Normal bowel sounds, Non tender Skin : Warm, Dry Neurological : Alert & oriented x3, No focal deficit Discharge Plan Discharge Patient Disposition: Home, Self-Care Discharge Diagnosis: back pain, post dural headache, gout Referrals: Drew Theodore MD [Primary Care Provider] - 1 Week Discharge Medications: New prednisone 20 mg Tablet 40 mg PO DAILY Qty: 10 RF: 0 oxycodone 5 mg tablet 5 mg PO Q6H PRN (Reason: pain) Qty: 20 RF: 0 Continued ondansetron HCl [Zofran] 4 mg tablet 4 mg PO Q8H PRN (Reason: nausea and vomiting) 20 Days Qty: 60 RF: 8 clindamycin HCl 300 mg capsule 300 mg PO Q6H 10 Days Qty: 40 RF: 0 acetaminophen 500 mg Capsule 1,000 mg PO Q6H PRN (Reason: Pain) RF: 0 Discontinued oxycodone 10 mg tablet 1 tab PO Q8H PRN (Reason: pain) RF: 0 Discharge Orders: Discharge Order (Routine); Ordered 02/07/21 Ordered By: Tono Smart Diet: advance to usual diet Activity on Discharge: As tolerated Stand Alone Forms: Patient Portal Discharge page Care Plan Goals: recovery Health Concerns: chronic back pain, headache, gout Plan of Treatment: follow up with dr yuen Continue clindamycin for 2 more days only prednisone for 5 days Assessment: To follow-up with PCP for long-term treatment of gout Discharge Date/Time: 02/07/21 15:34
--- NOTE | 2021-02-07 11:38 | MHC.CM.PN ---
Pt discharging home self-care today w/resump of [facility], family for transport.
[2021-02-07 12:00] VITALS: BP 108/65; PULSE 69; RESP 17; TEMP 36.7; O2SAT 98
[2021-02-07] MEDS: oxyCODONE HCl Immed Release 5 MG TABLET PO (13:59)
== END 2021-02-07 15:34 | disposition home or self-care (01) ==
LOC: HO.ED 21:24 → HO.EDOVER 22:29 → HO.S3 01-31 01:16
PROVIDERS: Anesthesiology; Internal Medicine; Admitting Provider Hospitalist; Emergency Provider Emergency Medicine; PCP Internal Medicine; Visit Provider Student in an Organized Health Care Education/Training Program
PROC: 3E0R3GC Introduction of Other Therapeutic Substance into Spinal Canal, Percutaneous Approach (ICD-10-PCS; CPT 62273; principal; 2021-01-31 15:00)
DX: G89.4 Chronic pain syndrome (principal); G97.1 Other reaction to spinal and lumbar puncture; C64.2 Malignant neoplasm of left kidney, except renal pelvis; R10.84 Generalized abdominal pain; M10.9 Gout, unspecified; R11.11 Vomiting without nausea; E86.0 Dehydration; F17.210 Nicotine dependence, cigarettes, uncomplicated; Z20.822 Contact with and (suspected) exposure to COVID-19; Z87.39 Personal history of other diseases of the musculoskeletal system and connective tissue; Z90.5 Acquired absence of kidney; Z90.79 Acquired absence of other genital organ(s); Z97.8 Presence of other specified devices; Z79.891 Long term (current) use of opiate analgesic; Z79.899 Other long term (current) drug therapy
CPT/HCPCS: 62273 ×2; 36415; 70450; 80048; 80053; 83735; 85025; 87635; 96361; 96365; 96374; 96375; 96376; 99218; 99244; 99285; J0690; J1170; J2405; Q9967

== ENCOUNTER → 2021-02-13 11:54 | Outpatient (BNVA) | payer MEDICARE, MEDICAID, SELFPAY | PROVIDERS: PCP Internal Medicine; Visit Provider Anesthesiology | DX: R51.9 Headache, unspecified (principal); H53.2 Diplopia; C64.2 Malignant neoplasm of left kidney, except renal pelvis; R10.84 Generalized abdominal pain; G89.4 Chronic pain syndrome; G97.1 Other reaction to spinal and lumbar puncture; F17.210 Nicotine dependence, cigarettes, uncomplicated; Z90.5 Acquired absence of kidney; Z98.890 Other specified postprocedural states | CPT/HCPCS: 99212 ==

== ENCOUNTER 2021-02-21 13:58 | Day surgery (SDC) | payer MEDICARE, MEDICAID, SELFPAY ==
--- NOTE | ~2021-02-21 | CT_ITS ---
EXAMINATION: CT THORACIC SPINE CLINICAL INFORMATION: Significant headache back pain and neck pain status post placement of intrathecal pump. COMPARISON: None TECHNIQUE: Axial 3 mm thin images of thoracolumbar spine were obtained from mid T6-S1 vertebra. Subsequently 2 mm sagittal and coronal images of thoracolumbar spine were obtained. This CT examination was performed using dose optimization techniques as appropriate, variously including the following: *Automated exposure control *Adjustment of mA and/or kV according to patient size (this includes techniques or standardized protocols for targeted exams where dose is matched to indication/reason for exam; i.e. extremities or head) *Use of iterative reconstruction technique DLP: 801 mGy-cm FINDINGS: The T6-T7 through T8-T9 disc level appears unremarkable. At T9-T10 disc level there is a central disc herniation indenting the ventral thecal sac and resulting in mild AP canal stenosis. At T11-T12 disc level there is minimal bulge resulting in mild ventral thinning of the thecal sac. No spinal canal stenosis seen. Within the lumbar spine there is no disc bulge, herniation or spinal stenosis except for mild degenerative disc changes and vacuum disc phenomena at L5-S1 disc level. There is intrathecal catheter entering the L1-L2 posterior epidural space and extending superiorly lateral to the conus and intervention in the posterior epidural space at the T10 vertebra. The tip of the catheter ends at T8 vertebra with a metal ring at the tip producing artifact. There is no intrathecal filling defect. There is no extravasation of contrast to suspect any CSF leak within the thoracic or the spinal canal. There is diffuse osteopenia but no visible fracture seen. There is a bridging osteophyte at the L5-S1 disc level. CT/CT thoracic post myelogram IMPRESSION: Moderate size T9-T10 disc herniation indenting ventral thecal sac with minimal AP canal stenosis. Minimal bulge at T11-T12 disc level but no spinal canal stenosis. Degenerative vacuum disc phenomena at L5-S1 disc level. The intrathecal pump catheter enters at L1-L2 disc level extending cephalad to left of the thecal sac and then in the posterior pleural space with the tip at T8 vertebra. The catheter appears patent. No extravasation of contrast seen within the extra-axial space to suspect any CSF leak. There is diffuse osteopenia.
--- NOTE | ~2021-02-21 | FL_ITS ---
EXAMINATION: XR FLUOROSCOPY WITH IMAGES CLINICAL INFORMATION: ITDD dye study COMPARISON: None. TECHNIQUE: Fluoroscopy performed by Dr. Carlitos Yuen. Fluoroscopy time: 0.8 minutes DAP: 5.02 Gycm2 Images: 79 FINDINGS: There is a fine catheter seen overlying the spinal canal with tip in region of T8-T9. The cine spot images show some contrast in the spinal canal. No vascular communication. FL/FL guidance in OR IMPRESSION: Fluoroscopy for pain management procedure.
[2021-02-21 14:00] VITALS: BP 110/78; PULSE 89; RESP 16; TEMP 36.9; O2SAT 98; BMI 23.7
--- NOTE | 2021-02-21 14:17 | MHC.SHP ---
Pre-Procedural Eval Section A Date of Service: 02/21/21 The patient is an INPATIENT: No The History & Physical has been completed within 30 days and I have reviewed it.: No Section B Chief Complaint: headaches Details of Present Illness: Presumable post dural puncture headache Relevant Family History (Specify if Yes): No Relevant Social History: None Present Medications: see Short Stay Collaborative assessment Medical History: Significant History History of Previous Operations: No relevant previous surgery Allergies: Allergies Allergy/AdvReac Type Severity Reaction Status Date / Time No Known Allergies Allergy Verified 01/18/21 10:01 Review of Systems Sugical H&P ROS: Negative: Constitution, Cardiovascular, Respiratory, Neurological, Psychiatric, Hem-Onc, Allergic/Immunologic, Gastrointestinal, Genitourinary, Musculoskeletal, Integumentary, Endocrine and Eyes/Ears/Nose/Throat Exam Surgical H&P Exam: Normal: HEENT, Normal: Heart, Normal: Lungs, Normal: Extremities, Normal: Abdomen, Normal: Skin and Normal: Neurological Plan Diagnosis/Plan: Unchanged I have reviewed the history and physical and performed a pertinent physical examination on my patient. No changes have occurred unless specified.
[2021-02-21 15:21] VITALS: BP 95/70; PULSE 77; RESP 16; TEMP 36.1; O2SAT 97
--- NOTE | 2021-02-21 15:23 | PM.OP ---
Brief Operative Note Date of Service: 02/21/21 Pre-op diagnosis: Post dural puncture headache Procedure: Intrathecal catheter dye study and CT myelography. Implants: None Surgeon: Carlitos Yuen MD Anesthesia: none Was an Harness Placer used for this Procedure?: No Estimated blood loss (mL): 0 Pathology: none sent Condition: stable Disposition: PACU
--- NOTE | 2021-02-21 15:25 | P.OP_ITS ---
Operative Note Operative Note Date of Service: 02/21/21 Narrative: Mr. Gonzalez is very pleasant 55 years old gentleman who is after implantation of the intrathecal drug delivery system pain pump is suffering from what appears to be post dural puncture headache. The patient was positioned prone on the operating table his left buttock was prepped with ChloraPrep and draped with fenestrated drape. Sterilely draped C- arm was brought over the operating field and picture of the pain pump was demonstrated on the screen. Side port of the pump was chosen as the target of the injection. The sterilely assembled noncoring needle connected through plastic extension to the 6 cc syringe was brought on the operating field an in tunnel vision fashion was inserted into the side port through the skin. The clamp on the extension was opened and 2 cc of the medicine containing cerebral spinal fluid was aspirated without difficulties. There were no bubbles observed. After that sterilely obtained Isovue M 300 contrast was injected into the catheter and the catheter was observed under digital subtraction. No extravasation of the medication contrast was noted throughout the length of the entire catheter epidurogram was demonstrated. After that 10 cc of the contrast was injected into the intrathecal space for the purpose of performing CT myelogram. The needle was removed and sterile dressing was applied. The patient was transferred to the CT scan unit where CT scan was performed on the patient's lumbar spine from T6 down to S1 area. Upon completion of the CT the patient was transferred to the recovery room where he recovered uneventfully.
== END 2021-02-21 15:29 | disposition home or self-care (01) ==
PROVIDERS: PCP Internal Medicine; Visit Provider Anesthesiology
PROC: (CPT 61070; principal; 2021-02-21 15:20)
DX: G97.1 Other reaction to spinal and lumbar puncture (principal); R51.9 Headache, unspecified; G89.4 Chronic pain syndrome; Z97.8 Presence of other specified devices; Z45.1 Encounter for adjustment and management of infusion pump; Y84.4 Aspiration of fluid as the cause of abnormal reaction of the patient, or of later complication, without mention of misadventure at the time of the procedure; Y92.9 Unspecified place or not applicable; C64.2 Malignant neoplasm of left kidney, except renal pelvis; Z90.5 Acquired absence of kidney; F17.210 Nicotine dependence, cigarettes, uncomplicated; F12.90 Cannabis use, unspecified, uncomplicated
CPT/HCPCS: 61070; 72128; Q9967

== ENCOUNTER 2021-02-26 08:07 | Outpatient (REF) | payer MEDICARE, MEDICAID, SELFPAY ==
--- NOTE | ~2021-02-26 | MR_ITS ---
EXAMINATION: MR ANGIOGRAPHY BRAIN WITHOUT CONTRAST CLINICAL INFORMATION: Headache. COMPARISON: None available. TECHNIQUE: A uara-ox-gwaunb MRA of the head is obtained without contrast. Vascular post-processing, including 2-dimensional and 3-dimensional reformatted images were created and reviewed on an independent workstation under concurrent physician supervision. Stenoses are graded per criteria similar to NASCET. FINDINGS: The anterior and posterior intracranial arterial circulations are normal in caliber without significant arterial stenoses and without acute arterial occlusions. There are no aneurysms and there are no high flow vascular malformations. MR/MR angio head wo con IMPRESSION: Unremarkable MRA of the head.
== END 2021-02-26 08:08 | disposition home or self-care (01) ==
LOC: HO.MRI 08:07
PROVIDERS: PCP Internal Medicine; Visit Provider Anesthesiology
DX: R51.9 Headache, unspecified (principal)
CPT/HCPCS: 62368; 70544

== ENCOUNTER 2021-03-01 09:38 | Outpatient (REF) | payer MEDICARE, MEDICAID, SELFPAY ==
--- NOTE | ~2021-03-01 | MR_ITS ---
EXAMINATION: MR BRAIN WITHOUT AND WITH CONTRAST CLINICAL INFORMATION: Malignant neoplasm of kidney. Headaches. Double vision. Head CT dated 01/30/2021. COMPARISON: None. TECHNIQUE: Multiplanar, multisequence imaging of the brain was performed before and after the intravenous administration of 8 mL of Gadavist. FINDINGS: No diffusion abnormalities are identified to suggest an acute infarct. The ventricles are normal in size. No mass effect or midline shift is seen. Nonspecific mild scattered white matter signal changes noted. No extra-axial fluid collections are seen. The brainstem and cerebellum are normal. There are multiple small foci of T1 bright signal scattered in the subarachnoid spaces, basilar cisterns, and in the ventricles which are nonspecific. On postcontrast imaging, there is no abnormal parenchymal or leptomeningeal enhancement. The gradient refocused acquisition is normal. The craniovertebral junction, marrow signal, and midline structures are normal. The major intracranial flow voids at the level of the [place] are preserved. The dural venous sinus flow voids are maintained. The mastoid air cells are well aerated. There is a small Tornwaldt cyst in the midline nasopharyngeal roof. There is mild mucosal thickening in the sphenoethmoid sinuses. MR/MR head/brain wo/w con IMPRESSION: No acute process. No evidence of intracranial metastatic disease. Nonspecific mild scattered white matter signal changes. Small foci of signal in the subarachnoid spaces and ventricular system which are nonspecific but can be seen in the setting of a prior ruptured dermoid. Subarachnoid fat dissemination from an intrathecal infusion pump would be another possibility.
== END 2021-03-01 09:39 | disposition home or self-care (01) ==
LOC: HO.MRI 09:38
PROVIDERS: PCP Internal Medicine; Visit Provider Anesthesiology
DX: C64.9 Malignant neoplasm of unspecified kidney, except renal pelvis (principal); C79.31 Secondary malignant neoplasm of brain; R51.9 Headache, unspecified
CPT/HCPCS: 70553; A9585

== ENCOUNTER 2021-03-26 06:47 | Outpatient (REF) | payer MEDICARE, MEDICAID, SELFPAY | END 2021-03-26 06:48 | disposition home or self-care (01) | LOC: HO.RADIR 06:47 | PROVIDERS: Visit Provider Anesthesiology | DX: Z13.89 Encounter for screening for other disorder (principal) ==

== ENCOUNTER 2021-04-16 06:41 | Outpatient (REF) | payer MEDICARE, MEDICAID, SELFPAY | END 2021-04-16 06:42 | disposition home or self-care (01) | LOC: HO.RADIR 06:41 | PROVIDERS: Visit Provider Anesthesiology | DX: C64.9 Malignant neoplasm of unspecified kidney, except renal pelvis (principal); R51.9 Headache, unspecified | CPT/HCPCS: 62370 ==

== ENCOUNTER 2021-06-11 06:10 | Outpatient (REF) | payer MEDICARE, MEDICAID, SELFPAY | END 2021-06-11 06:11 | disposition home or self-care (01) | LOC: HO.RADIR 06:10 | PROVIDERS: Visit Provider Anesthesiology | DX: C64.9 Malignant neoplasm of unspecified kidney, except renal pelvis (principal); R51.9 Headache, unspecified; Z98.890 Other specified postprocedural states | CPT/HCPCS: 62370 ==

== ENCOUNTER 2021-08-27 06:01 | Outpatient (REF) | payer MEDICARE, MEDICAID, SELFPAY | END 2021-08-27 06:02 | disposition home or self-care (01) | LOC: HO.RADIR 06:01 | PROVIDERS: Visit Provider Anesthesiology | DX: Z13.89 Encounter for screening for other disorder (principal) ==

== ENCOUNTER 2021-11-20 05:59 | Outpatient (REF) | payer MEDICARE, MEDICAID, SELFPAY | END 2021-11-20 06:00 | disposition home or self-care (01) | LOC: HO.RADIR 05:59 | PROVIDERS: Visit Provider Internal Medicine | DX: Z13.89 Encounter for screening for other disorder (principal) ==

== ENCOUNTER → 2021-11-21 12:55 | Outpatient (BNVA) | payer MEDICARE, MEDICAID, SELFPAY | PROVIDERS: PCP Internal Medicine; Visit Provider Internal Medicine | DX: Z97.8 Presence of other specified devices (principal) | CPT/HCPCS: 62370; 99212 ==

== ENCOUNTER 2021-12-31 06:06 | Outpatient (REF) | payer MEDICARE, MEDICAID, SELFPAY ==
--- NOTE | ~2021-12-31 | FL_ITS ---
EXAMINATION: XR FLUOROSCOPY WITH IMAGES CLINICAL INFORMATION: Presence of other specified devices COMPARISON: Fluoroscopic guidance imaging from 02/21/2021 TECHNIQUE: Fluoroscopy time: 0.1 minutes DAP: 1.19 Gycm2 Images: 1 FINDINGS: Single intraoperative fluoroscopic image is submitted. Single image demonstrates electronic device. Correlation with operative report. Evaluation is limited secondary to fluoroscopic technique. FL/FL guidance in treatment room IMPRESSION: Intraoperative fluoroscopic imaging provided by radiology department. Correlation with operative report.
[2021-12-31 16:34] LABS: CSF Appearance Clear, Colorless; CSF Tube # 1
[2021-12-31 16:46] LABS: Glucose CSF 67 mg/dL; Total Protein CSF 45.8 mg/dL (15-45)
[2021-12-31 17:03] LABS: Appearance CSF CLEAR; CSF Tube # 4; Color CSF COLORLESS; Lymphocytes CSF 0 %; Neutrophils CSF 0 %; Red Blood Cell CSF 3 MM*3; White Blood Cell CSF 0 MM*3
[2021-12-31 17:04] LABS: CSF Monos 0 %; CSF Other Cells % 0 %
== END 2021-12-31 06:07 | disposition home or self-care (01) ==
LOC: HO.RADIR 06:06
PROVIDERS: Visit Provider Anesthesiology
DX: C79.31 Secondary malignant neoplasm of brain (principal); R51.9 Headache, unspecified; Z97.8 Presence of other specified devices
CPT/HCPCS: 62270; 82945; 84157; 88108; 89051

== ENCOUNTER → 2022-04-16 13:17 | Outpatient (BNVA) | payer MEDICARE, MEDICAID, SELFPAY | PROVIDERS: PCP Internal Medicine; Visit Provider Anesthesiology | DX: C64.2 Malignant neoplasm of left kidney, except renal pelvis (principal); C79.31 Secondary malignant neoplasm of brain; G97.1 Other reaction to spinal and lumbar puncture; Z90.5 Acquired absence of kidney; Z96.89 Presence of other specified functional implants; Z92.21 Personal history of antineoplastic chemotherapy; Z92.3 Personal history of irradiation; Z45.1 Encounter for adjustment and management of infusion pump | CPT/HCPCS: 99212 ==